=== PATIENT | female | born 1990 | race American Indian/Alaskan Native ===

== ENCOUNTER 2018-12-02 12:33 | Inpatient (IN) | payer MEDICAID ==
[2018-12-02] MEDS ORDERED: BRETHINE SUB-Q PRN (14:48)
[2018-12-02] MEDS ORDERED: SUBLIMAZE IV PRN (14:48)
[2018-12-02] MEDS ORDERED: ZOFRAN IV PRN (14:48)
[2018-12-02] MEDS ORDERED: XYLOCAINE 2% INFILTRATI ONE (14:48)
[2018-12-02] MEDS ORDERED: PITOCin/NS 20 UNIT/1000ML DRIP 20 UNITS/1,000 ML BAG IV SCH (15:00)
[2018-12-02] MEDS ORDERED: PITOCin/NS 30 UNIT/500ML 30 UNITS/500 ML BAG IV SCH (15:00)
--- NOTE | 2018-12-02 15:16 | History and Physical Report ---
History of Present Illness Date of examination: 12/02/18 (Early labor BPP 6/8 TEA 9) History of present illness: EDC Confirmation: 12/06/2018 Gestational Age: 12 1/7 weeks Past History : 3 Term Births: 2 Living Children: 2 Para: 2 Mult. Births: 0 Prev : 0 Prev. attempt? 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 Infection History Hx of STD: chlamydia HIV Risk Eval: low risk Hepatitis B Risk Eval: low risk Personal hx. of genital herpes: yes Partner hx. of genital herpes: no Rash, Viral, or Febrile illness since last LMP? no Varicella/Chicken Pox Status: Immunized TB Risk: no Genetic History Congenital Heart Defect: Mom: no Dad: no Guerda Disease: Mom: no Dad: no Thalassemia Mom: no Dad: no Neural Tube Defect Mom: no Dad: no Down's Syndrome Mom: no Dad: no Smauel-Sachs Mom: no Dad: no Sickle Cell Disease/Trait Mom: no Dad: no Hemophilia Mom: no Dad: no Muscular Dystrophy Mom: no Dad: no Cystic Fibrosis Mom: no Dad: no [place] Chorea Mom: no Dad: no Mental Retardation Mom: no Dad: no Fragile X Mom: no Dad: no Other Genetic/Chromosomal Disorder Mom: no Dad: no Child w/other defect Mom: no Dad: no Enviromental Exposures Enviromental Exposures Reviewed Xray Exposure: no Medication, drug, or alcohol use since LMP: no Chemical/Other Exposure: no Exposure to Cat Liter: no Hx of Parvovirus (Fifth Disease): no Occupational Exposure to Children: none Active Medications (reviewed today): VALACYCLOVIR HCL 500 MG ORAL TABLET (VALACYCLOVIR HCL) 1 po qd Current Allergies (reviewed today): No known allergies Past History - Obstetrical History Expected Date of Delivery: 12/06/18 Actual Gestation: 39 Week(s) 3 Day(s) : 3 Para: 2 Hx # Term Pregnancies: 2 Number of Pregnancies: 0 Spontaneous Abortions: 0 Induced : 0 Number of Living Children: 2 Medications and Allergies Allergies Allergy/AdvReac Type Severity Reaction Status Date / Time No Known Allergies Allergy Verified 12/02/18 12:42 Home Medications Medication Instructions Recorded Confirmed Last Taken Type No Known Home Medications [No 12/02/18 12/02/18 Unknown History Reported Home Medications] Active Meds: Active Medications Ephedrine Sulfate (Ephedrine Sulfate) 10 mg IV Q2M PRN PRN Reason: Hypotension Fentanyl (Sublimaze) 100 mcg IV Q2H PRN PRN Reason: Labor Pain Oxytocin/Sodium Chloride (Pitocin/Ns 20 Unit/1000ml Drip) 20 units in 1,000 mls @ 125 mls/hr IV DIRECT CELENA Oxytocin/Sodium Chloride (Pitocin/Ns 30 Unit/500ml) 30 units in 500 mls @ 4 mls/hr IV Q30MIN CELENA; Protocol Lactated Ringer's (Lactated Ringers) 1,000 mls @ 125 mls/hr IV DIRECT CELENA Mineral Oil (Mineral Oil) 30 ml PO QHS PRN PRN Reason: Constipation Ondansetron HCl (Zofran) 4 mg IV Q8H PRN PRN Reason: Nausea And Vomiting Terbutaline Sulfate (Brethine) 0.25 mg SUB-Q ONCE PRN PRN Reason: Hyperstimulation/Hypertonicity - Vital Signs Vital signs: Vital Signs Pulse BP 100 H 101/59 12/02/18 12:51 12/02/18 12:51 Temp Pulse Resp BP Pulse Ox 98.4 F 94 H 18 105/60 12/02/18 13:15 12/02/18 13:54 12/02/18 13:15 12/02/18 13:54 - Physical Exam Breasts: Positive: deferred Cardiovascular: Regular rate, Normal S1, Normal S2 Lungs: Positive: Normal air movement Abdomen: Positive: normal appearance, soft, normal bowel sounds. Negative: distention, tenderness Genitourinary (Female): Positive: normal external genitalia Vulva: both: normal Vagina: Positive: normal moisture. Negative: discharge Cervix: Negative: lesion, discharge Uterus: Positive: normal size, normal contour Adnexa: both: normal Anus/Rectum: Positive: normal perianal skin, heme negative. Negative: rectal mass, hemorrhoids Extremities: Positive: normal Deep Tendon Reflex Grade: Normal +2 - Obstetrical FHR: category 1 Uterine Contraction Monitor Mode: External Cervical Dilatation: 1 Cervical Effacement Percentage: 10 station: -2 Uterine Contraction Pattern: Irregular Uterine Tone Measurement Phase: Resting Uterine Contraction Intensity: Mild Results All other labs normal. GBS negative HBsAg Screen Negative Negative *1 RPR Non Reactive Non Reactive *2 Rubella Antibodies, IgG 1.25 index Immune >0.99 *3 Non-immune <0.90 Equivocal 0.90 - 0.99 Immune >0.99 ABO Grouping B *4 Rh Factor Positive *5 Please note: Prior records for this patient's ABO / Rh type are not available for additional verification. Antibody Screen Negative Negative *6 WBC [H] 12.4 x10E3/uL 3.4-10.8 *7 RBC 4.31 x10E6/uL 3.77-5.28 *8 Hemoglobin 11.7 g/dL 11.1-15.9 *9 Hematocrit 36.6 % 34.0-46.6 *10 MCV 85 fL 79-97 *11 MCH 27.1 pg 26.6-33.0 *12 MCHC 32.0 g/dL 31.5-35.7 *13 RDW 14.6 % 12.3-15.4 *14 Platelets 347 x10E3/uL 150-379 *15 Neutrophils 75 % Not Estab. *16 Lymphs 18 % Not Estab. *17 Monocytes 6 % Not Estab. *18 Eos 1 % Not Estab. *19 Basos 0 % Not Estab. *20 ! Immature Cells <No Reported Value> *21 Neutrophils (Absolute) [H] 9.3 x10E3/uL 1.4-7.0 *22 Lymphs (Absolute) 2.3 x10E3/uL 0.7-3.1 *23 Monocytes(Absolute) 0.8 x10E3/uL 0.1-0.9 *24 Eos (Absolute) 0.1 x10E3/uL 0.0-0.4 *25 Baso (Absolute) 0.0 x10E3/uL 0.0-0.2 *26 ! Immature Granulocytes 0 % Not Estab. *27 ! Immature Grans (Abs) 0.0 x10E3/uL 0.0-0.1 *28 ! NRBC <No Reported Value> *29 Hematology Comments: <No Reported Value> *30 Tests: (2) AFP Tetra ([id number]) ! Results Report *31 ! Test Results: *Screen Negative* *32 ! Tests: (3) Ct, Ng, Trich vag by ILA ([id number]) ! Chlamydia by ILA Negative Negative *55 ! Gonococcus by ILA Negative Negative *56 ! Trich vag by ILA Negative Negative *57 Tests: (4) HB Solu + Rflx [facility] ([id number]) Hemoglobin (Hgb) Solubility Negative Negative *58 Tests: (5) Panel 022288 ([id number]) HIV Screen 4th Generation wRfx Non Reactive Non Reactive *59 Tests: (6) HCV Ab w/Rflx to Verification ([id number]) ! HCV Ab <0.1 s/co ratio 0.0-0.9 *60 Tests: (7) Comment: ([id number]) ! Comment: SPRCS *61 Non reactive HCV antibody screen is consistent with no HCV infection, unless recent infection is suspected or other evidence exists to indicate HCV infection. Tests: (8) Urine Culture, Routine ([id number]) Urine Culture, Routine Final report *62 Tests: (9) Result ([id number]) ! Result 1 No growth Assessment and Plan pt presents to triage with c/o ctx and a decrease in movement NST reactive BPP /8 with 2 off for movement. Will move forward with IOL @ 39 weeks. Pt had been scheduled for 12/06/18. Consulted with she concurs with IOL today. She recommends CMP due to Lupus to assess kidney function. given report. GBS negative. All orders in EMR
[2018-12-02 15:56] LABS: Hematocrit 26.5 % (30.3-42.9); Hemoglobin 8.2 gm/dl (10.1-14.3); Mean Corpuscular HGB Conc 31 % (30-34); Platelet Count 287 K/mm3 (140-440); Red Blood Count 3.81 M/mm3 (3.65-5.03); Red Cell Distribution Width 18.4 % (13.2-15.2)
[2018-12-02 16:23] LABS: Mean Corpuscular Volume 69 fl (79-97)
[2018-12-02 16:31] LABS: Alanine Aminotransferase 10 units/L (7-56); Albumin 3.7 g/dL (3.9-5); BUN/Creatinine Ratio 23; Blood Urea Nitrogen 9 mg/dL (7-17); Calcium 9.1 mg/dL (8.4-10.2); Hemolysis Index 1
[2018-12-02] MEDS: LACTATED RINGERS 1,000 ML IV SCH (16:47)
[2018-12-02] MEDS ORDERED: CERVIDIL VG ONE (17:00)
--- NOTE | 2018-12-02 17:29 | Ultrasound Report ---
Limited OB ultrasound Biophysical profile INDICATION: Nonreactive NST. Evaluate TEA. Clinical Gestational Age (GA): 39 weeks, 3 days. TECHNIQUE: Transabdominal. COMPARISON: None available. FINDINGS: A single live intrauterine is noted in cephalic position with a normal amniotic fluid index of 9.4 cm. The biophysical profile is 6/8. movement was abnormal during this exam. breathing movemen ts and posture/tone were normal. IMPRESSION: 1. Single live intrauterine with a normal amniotic fluid index. 2. Abnormal biophysical profile of 6/8. Signer Name: Solomon Rivas MD Signed: 12/02/2018 5:24 PM Workstation Name: [id number]
--- NOTE | 2018-12-02 19:05 | Ultrasound Report ---
Limited OB ultrasound with biophysical profile INDICATION: Nonreactive NST. Evaluate TEA. COMPARISON: None available. FINDINGS: The biophysical profile is 2/6. Normal movements are not seen during the exam. The amniotic flu id volume appears normal qualitatively. IMPRESSION: 1. Biophysical profile of 09/16. 2. Qualitatively normal amniotic fluid volume. Signer Name: Solomon Rivas MD Signed: 12/02/2018 7:01 PM Workstation Name: [id number]
[2018-12-02] MEDS ORDERED: MINERAL OIL PO PRN (22:00)
--- NOTE | 2018-12-02 22:08 | Progress Note ---
Assessment and Plan Pt declines any medication at this time. Re-eval as needed. Subjective - Subjective Date of service: 12/02/18 (ctx regular) Principal diagnosis: IUP @ 39w3d Lupus Interval history: EDC Confirmation: 12/06/2018 Gestational Age: 12 1/7 weeks Past History : 3 Term Births: 2 Living Children: 2 Para: 2 Mult. Births: 0 Prev : 0 Prev. attempt? 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 Infection History Hx of STD: chlamydia HIV Risk Eval: low risk Hepatitis B Risk Eval: low risk Personal hx. of genital herpes: yes Partner hx. of genital herpes: no Rash, Viral, or Febrile illness since last LMP? no Varicella/Chicken Pox Status: Immunized TB Risk: no Genetic History Congenital Heart Defect: Mom: no Dad: no Guerda Disease: Mom: no Dad: no Thalassemia Mom: no Dad: no Neural Tube Defect Mom: no Dad: no Down's Syndrome Mom: no Dad: no Samuel-Sachs Mom: no Dad: no Sickle Cell Disease/Trait Mom: no Dad: no Hemophilia Mom: no Dad: no Muscular Dystrophy Mom: no Dad: no Cystic Fibrosis Mom: no Dad: no [place] Chorea Mom: no Dad: no Mental Retardation Mom: no Dad: no Fragile X Mom: no Dad: no Other Genetic/Chromosomal Disorder Mom: no Dad: no Child w/other defect Mom: no Dad: no Enviromental Exposures Enviromental Exposures Reviewed Xray Exposure: no Medication, drug, or alcohol use since LMP: no Chemical/Other Exposure: no Exposure to Cat Liter: no Hx of Parvovirus (Fifth Disease): no Occupational Exposure to Children: none Active Medications (reviewed today): VALACYCLOVIR HCL 500 MG ORAL TABLET (VALACYCLOVIR HCL) 1 po qd Current Allergies (reviewed today): No known allergies Patient reports: movement normal, contractions Objective - Vital Signs Vital Signs: Vital Signs - 12hr 12/02/18 12/02/18 12/02/18 12:51 13:15 13:54 Temperature 98.4 F Pulse Rate 100 H 100 H 94 H Respiratory 18 Rate Blood Pressure 101/59 105/60 Blood Pressure [Right] O2 Sat by Pulse Oximetry 12/02/18 12/02/18 12/02/18 15:35 18:02 18:10 Temperature Pulse Rate 87 96 H 93 H Respiratory Rate Blood Pressure 118/64 102/59 109/66 Blood Pressure [Right] O2 Sat by Pulse Oximetry 12/02/18 12/02/18 12/02/18 19:36 19:38 21:07 Temperature 98.6 F Pulse Rate 100 H 100 H 90 Respiratory 20 Rate Blood Pressure 119/64 Blood Pressure 119/64 [Right] O2 Sat by Pulse 100 Oximetry 12/02/18 12/02/18 12/02/18 21:12 21:17 21:22 Temperature Pulse Rate 88 88 87 Respiratory Rate Blood Pressure Blood Pressure [Right] O2 Sat by Pulse 100 99 99 Oximetry 12/02/18 12/02/18 12/02/18 21:27 21:32 21:37 Temperature Pulse Rate 92 H 84 89 Respiratory Rate Blood Pressure Blood Pressure [Right] O2 Sat by Pulse 99 98 98 Oximetry 12/02/18 21:42 Temperature Pulse Rate 86 Respiratory Rate Blood Pressure Blood Pressure [Right] O2 Sat by Pulse 98 Oximetry - Exam Breasts: deferred Cardiovascular: Regular rate Abdomen: Present: normal appearance, soft. Absent: distention, tenderness Uterus: Present: normal FHR: auscultation normal, category 1 Uterine Contraction Monitor Mode: External Cervical Dilatation: 1 (cervidil in place) Cervical Effacement Percentage: 80 station: -1 Uterine Contraction Pattern: Regular Uterine Tone Measurement Phase: Resting Uterine Contraction Intensity: Moderate Extremities: normal Deep Tendon Reflex Grade: Normal +2 - Labs Labs: Abnormal Labs 12/02/18 12/02/18 15:09 15:09 WBC 11.8 H Hgb 8.2 L Hct 26.5 L MCV 69 L MCH 22 L RDW 18.4 H Sodium 136 L Creatinine 0.4 L Alkaline Phosphatase 146 H Albumin 3.7 L Laboratory Results - last 24 hr 12/02/18 12/02/18 12/02/18 14:52 15:09 15:09 WBC 11.8 H RBC 3.81 Hgb 8.2 L Hct 26.5 L MCV 69 L MCH 22 L MCHC 31 RDW 18.4 H Plt Count 287 Sodium 136 L Potassium 3.8 Chloride 100.5 Carbon Dioxide 23 Anion Gap 16 BUN 9 Creatinine 0.4 L Estimated GFR > 60 BUN/Creatinine Ratio 23 Glucose 81 Calcium 9.1 Total Bilirubin 0.60 AST 21 ALT 10 Alkaline Phosphatase 146 H Total Protein 6.8 Albumin 3.7 L Albumin/Globulin Ratio 1.2 Blood Type B POSITIVE Antibody Screen Negative
[2018-12-03] MEDS: LACTATED RINGERS 1,000 ML IV SCH ×2 (00:28→03:06)
[2018-12-03] MEDS ORDERED: NARCAN 2 MG/2 ML IV PRN (01:46)
--- NOTE | 2018-12-03 01:46 | Progress Note ---
Assessment and Plan Comfortable with epidural SROM clear fluid SVE 4,50,-1 IUPC placed Pitocin started. Re-eval as needed Subjective - Subjective Date of service: 12/03/18 (comfortable with epidural) Principal diagnosis: IUP @ 39w3d Lupus Interval history: EDC Confirmation: 12/06/2018 Gestational Age: 12 1/7 weeks Past History : 3 Term Births: 2 Living Children: 2 Para: 2 Mult. Births: 0 Prev : 0 Prev. attempt? 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 Infection History Hx of STD: chlamydia HIV Risk Eval: low risk Hepatitis B Risk Eval: low risk Personal hx. of genital herpes: yes Partner hx. of genital herpes: no Rash, Viral, or Febrile illness since last LMP? no Varicella/Chicken Pox Status: Immunized TB Risk: no Genetic History Congenital Heart Defect: Mom: no Dad: no Guerda Disease: Mom: no Dad: no Thalassemia Mom: no Dad: no Neural Tube Defect Mom: no Dad: no Down's Syndrome Mom: no Dad: no Samuel-Sachs Mom: no Dad: no Sickle Cell Disease/Trait Mom: no Dad: no Hemophilia Mom: no Dad: no Muscular Dystrophy Mom: no Dad: no Cystic Fibrosis Mom: no Dad: no [place] Chorea Mom: no Dad: no Mental Retardation Mom: no Dad: no Fragile X Mom: no Dad: no Other Genetic/Chromosomal Disorder Mom: no Dad: no Child w/other defect Mom: no Dad: no Enviromental Exposures Enviromental Exposures Reviewed Xray Exposure: no Medication, drug, or alcohol use since LMP: no Chemical/Other Exposure: no Exposure to Cat Liter: no Hx of Parvovirus (Fifth Disease): no Occupational Exposure to Children: none Active Medications (reviewed today): VALACYCLOVIR HCL 500 MG ORAL TABLET (VALACYCLOVIR HCL) 1 po qd Current Allergies (reviewed today): No known allergies Patient reports: movement normal, contractions Objective - Vital Signs Vital Signs: Vital Signs - 12hr 12/02/18 12/02/18 12/02/18 13:54 15:35 18:02 Temperature Pulse Rate 94 H 87 96 H Respiratory Rate Blood Pressure 105/60 118/64 102/59 Blood Pressure [Right] O2 Sat by Pulse Oximetry 12/02/18 12/02/18 12/02/18 18:10 19:36 19:38 Temperature 98.6 F Pulse Rate 93 H 100 H 100 H Respiratory 20 Rate Blood Pressure 109/66 119/64 Blood Pressure 119/64 [Right] O2 Sat by Pulse Oximetry 12/02/18 12/02/18 12/02/18 21:07 21:12 21:17 Temperature Pulse Rate 90 88 88 Respiratory Rate Blood Pressure Blood Pressure [Right] O2 Sat by Pulse 100 100 99 Oximetry 12/02/18 12/02/18 12/02/18 21:22 21:27 21:32 Temperature Pulse Rate 87 92 H 84 Respiratory Rate Blood Pressure Blood Pressure [Right] O2 Sat by Pulse 99 99 98 Oximetry 12/02/18 12/02/18 12/02/18 21:37 21:42 21:52 Temperature Pulse Rate 89 86 88 Respiratory Rate Blood Pressure Blood Pressure [Right] O2 Sat by Pulse 98 98 100 Oximetry 12/02/18 12/02/18 12/02/18 21:57 22:02 22:07 Temperature Pulse Rate 95 H 109 H 88 Respiratory Rate Blood Pressure Blood Pressure [Right] O2 Sat by Pulse 99 98 98 Oximetry 12/02/18 12/02/18 12/02/18 22:12 22:17 22:22 Temperature Pulse Rate 87 84 92 H Respiratory Rate Blood Pressure Blood Pressure [Right] O2 Sat by Pulse 98 98 98 Oximetry 12/02/18 12/02/18 12/02/18 22:27 22:32 22:37 Temperature Pulse Rate 98 H 85 90 Respiratory Rate Blood Pressure Blood Pressure [Right] O2 Sat by Pulse 99 98 98 Oximetry 12/02/18 12/02/18 12/02/18 22:42 22:47 22:52 Temperature Pulse Rate 86 111 H 85 Respiratory Rate Blood Pressure Blood Pressure [Right] O2 Sat by Pulse 98 97 98 Oximetry 12/02/18 12/02/18 12/02/18 22:57 23:02 23:07 Temperature Pulse Rate 90 94 H 91 H Respiratory Rate Blood Pressure Blood Pressure [Right] O2 Sat by Pulse 97 97 97 Oximetry 12/02/18 12/02/18 12/02/18 23:12 23:17 23:22 Temperature Pulse Rate 85 98 H 89 Respiratory Rate Blood Pressure Blood Pressure [Right] O2 Sat by Pulse 98 97 97 Oximetry 12/02/18 12/02/18 12/02/18 23:27 23:32 23:37 Temperature Pulse Rate 89 96 H 90 Respiratory Rate Blood Pressure Blood Pressure [Right] O2 Sat by Pulse 98 99 97 Oximetry 12/02/18 12/02/18 12/02/18 23:42 23:47 23:52 Temperature Pulse Rate 88 98 H 83 Respiratory Rate Blood Pressure Blood Pressure [Right] O2 Sat by Pulse 97 98 98 Oximetry 12/02/18 12/03/18 12/03/18 23:57 00:02 00:07 Temperature Pulse Rate 92 H 91 H 88 Respiratory Rate Blood Pressure Blood Pressure [Right] O2 Sat by Pulse 98 98 99 Oximetry 12/03/18 12/03/18 12/03/18 00:12 00:17 00:22 Temperature Pulse Rate 84 88 92 H Respiratory Rate Blood Pressure Blood Pressure [Right] O2 Sat by Pulse 98 99 100 Oximetry 12/03/18 12/03/18 12/03/18 00:27 00:32 00:37 Temperature Pulse Rate 89 85 99 H Respiratory Rate Blood Pressure Blood Pressure [Right] O2 Sat by Pulse 99 99 99 Oximetry 12/03/18 12/03/18 12/03/18 00:42 00:47 00:52 Temperature Pulse Rate 98 H 88 89 Respiratory Rate Blood Pressure Blood Pressure [Right] O2 Sat by Pulse 100 100 100 Oximetry 12/03/18 12/03/18 12/03/18 00:57 01:02 01:06 Temperature Pulse Rate 108 H 91 H 102 H Respiratory Rate Blood Pressure 122/75 Blood Pressure [Right] O2 Sat by Pulse 100 100 Oximetry 12/03/18 12/03/18 12/03/18 01:07 01:08 01:10 Temperature Pulse Rate 103 H 102 H 105 H Respiratory Rate Blood Pressure 118/75 119/80 Blood Pressure [Right] O2 Sat by Pulse 100 Oximetry 12/03/18 12/03/18 12/03/18 01:12 01:14 01:16 Temperature Pulse Rate 100 H 107 H 99 H Respiratory Rate Blood Pressure 124/78 143/71 126/71 Blood Pressure [Right] O2 Sat by Pulse 100 Oximetry 12/03/18 12/03/18 12/03/18 01:17 01:18 01:20 Temperature Pulse Rate 96 H 104 H 117 H Respiratory Rate Blood Pressure 124/66 129/66 Blood Pressure [Right] O2 Sat by Pulse 100 Oximetry 12/03/18 12/03/18 12/03/18 01:22 01:24 01:26 Temperature Pulse Rate 124 H 117 H 122 H Respiratory Rate Blood Pressure 133/72 133/73 134/74 Blood Pressure [Right] O2 Sat by Pulse 100 Oximetry 12/03/18 12/03/18 12/03/18 01:27 01:28 01:30 Temperature Pulse Rate 116 H 117 H 116 H Respiratory Rate Blood Pressure 128/72 128/64 Blood Pressure [Right] O2 Sat by Pulse 100 Oximetry 12/03/18 12/03/18 12/03/18 01:32 01:34 01:36 Temperature Pulse Rate 98 H 105 H 89 Respiratory Rate Blood Pressure 123/58 123/66 124/63 Blood Pressure [Right] O2 Sat by Pulse 100 Oximetry 12/03/18 12/03/18 12/03/18 01:37 01:38 01:40 Temperature Pulse Rate 98 H 98 H 97 H Respiratory Rate Blood Pressure 124/64 121/58 Blood Pressure [Right] O2 Sat by Pulse 99 Oximetry 12/03/18 01:42 Temperature Pulse Rate 122 H Respiratory Rate Blood Pressure 95/51 Blood Pressure [Right] O2 Sat by Pulse 100 Oximetry - Exam Breasts: deferred Cardiovascular: Regular rate Lungs: Normal air movement Abdomen: Present: normal appearance, soft. Absent: distention, tenderness Uterus: Present: normal FHR: auscultation normal, category 1 Uterine Contraction Monitor Mode: Internal Cervical Dilatation: 4 (IUPC) Cervical Effacement Percentage: 50 (SROM clear) station: -1 Uterine Contraction Pattern: Regular Uterine Tone Measurement Phase: Resting Uterine Contraction Intensity: Moderate Extremities: normal Deep Tendon Reflex Grade: Normal +2 - Labs Labs: Abnormal Labs 12/02/18 12/02/18 15:09 15:09 WBC 11.8 H Hgb 8.2 L Hct 26.5 L MCV 69 L MCH 22 L RDW 18.4 H Sodium 136 L Creatinine 0.4 L Alkaline Phosphatase 146 H Albumin 3.7 L Laboratory Results - last 24 hr 12/02/18 12/02/18 12/02/18 14:52 15:09 15:09 WBC 11.8 H RBC 3.81 Hgb 8.2 L Hct 26.5 L MCV 69 L MCH 22 L MCHC 31 RDW 18.4 H Plt Count 287 Sodium 136 L Potassium 3.8 Chloride 100.5 Carbon Dioxide 23 Anion Gap 16 BUN 9 Creatinine 0.4 L Estimated GFR > 60 BUN/Creatinine Ratio 23 Glucose 81 Calcium 9.1 Total Bilirubin 0.60 AST 21 ALT 10 Alkaline Phosphatase 146 H Total Protein 6.8 Albumin 3.7 L Albumin/Globulin Ratio 1.2 Blood Type B POSITIVE Antibody Screen Negative
[2018-12-03] MEDS ORDERED: fentaNYL-BUPIV 2 MCG/ML-0.125% 200 MCG/100 ML BAG EPIDURAL SCH (02:00)
--- NOTE | 2018-12-03 02:00 | Anesthesia Consultation ---
Anesthesia Consult and Med Hx Date of service: 12/03/18 - Airway Anesthetic Teeth Evaluation: Good ROM Head & Neck: Adequate Mental/Hyoid Distance: Adequate Mallampati Class: Class II Intubation Access Assessment: Probably Good - Pulmonary Exam CTA: Yes - Cardiac Exam Cardiac Exam: RRR - Pre-Operative Health Status ASA Pre-Surgery Classification: ASA2 Proposed Anesthetic Plan: Epidural - Pulmonary Hx Smoking: No Hx Asthma: No Hx Respiratory Symptoms: No SOB: No COPD: No Home Oxygen Therapy: No Hx Pneumonia: No Hx Sleep Apnea: No - Cardiovascular System Hx Hypertension: No Hx Coronary Artery Disease: No Hx Heart Attack/AMI: No Hx Angina: No Hx Percutaneous Transluminal Coronary Angioplasty (PTCA): No Hx Cardia Arrhythmia: No Hx Pacemaker: No Hx Internal Defibrillator: No Hx Valvular Heart Disease: No Hx Heart Murmur: No Hx Peripheral Vascular Disease: No - Central Nervous System Hx Neuromuscular Disorder: No Hx Seizures: No CVA: No Hx Back Pain: No Hx Psychiatric Problems: No - Gastrointestinal Hx Ulcer: No Hx Gastroesophageal Reflux Disease: No - Endocrine Hx Renal Disease: No Hx End Stage Renal Disease: No Hx Cirrhosis: No Hx Liver Disease: No Hx Insulin Dependent Diabetes: No Hx Non-Insulin Dependent Diabetes: No Hx Thyroid Disease: No Hx Hypothyroidism: No Hx Hyperthyroidism: No - Hematic Hx Anemia: No Hx Sickle Cell Disease: No - Other Systems Hx Alcohol Use: No Hx Substance Use: No Hx Cancer: No Hx Obesity: No
[2018-12-03] MEDS ORDERED: METHERGINE IM ONE ×2 (06:19→06:28)
[2018-12-03] MEDS ORDERED: TUCKS PAD TP PRN (06:34)
[2018-12-03] MEDS ORDERED: MILK OF MAGNESIA PO PRN (06:34)
[2018-12-03] MEDS ORDERED: BENADRYL PO PRN (06:34)
[2018-12-03] MEDS ORDERED: PHENERGAN PO PRN (06:34)
[2018-12-03] MEDS ORDERED: PERCOCET 5/325 PO PRN (06:34)
[2018-12-03] MEDS ORDERED: LANSINOH TP PRN (06:34)
[2018-12-03] MEDS ORDERED: DULCOLAX PR PRN (06:34)
--- NOTE | 2018-12-03 06:54 | Procedure Note ---
OB Delivery Note - Delivery Date of Delivery: 12/03/18 Building Custodial Supervisor: SEAN BARRIENTOS Estimated blood loss: 500cc - Vaginal Delivery presentation: vertex Delivery position: OA Intrapartum events: other(please specify) (herpes took Valtrex prophylactically; poss lesion noted on right labia after delivery) Delivery induction: cervidil Delivery augmentation: pitocin Delivery monitor: internal FHT, internal uterine Route of delivery: Delivery placenta: spontaneous Delivery cord: 3 umbilical vessels Episiotomy: none Delivery laceration: none Anesthesia: epidural Delivery comments: Called urgently to room for delivery live born female over intact perineum Baby to mom's abdomen skin to skin Placenta and membrane delivered complete and intact, 3 vessel cord. Pit IVFs Uterus boggy several mod clots expressed Uterine sweep done Methergin IM given EBL 500 8/9 Wgt 7-1. Mom and baby remain LDR stable. Bartholins cyst noted @ time of delivery I&D after delivery Culture done Will tx with Rocephin and Azythromycin. Possible HSV lesion noted on right labia after delivery This was not appreciated prior to onset labor despite thorough evaluation. Will continue Valtrex BID Placenta to pathology. - A at 1 minute: 8 at 5 minutes: 9 Infant Gender: Female (wgt 7-1)
[2018-12-03] MEDS ORDERED: SODIUM CHLORIDE FLUSH SYRINGE 10 ML IV NR (07:00)
[2018-12-03] MEDS: IBUPROFEN PO SCH ×3 (07:42→19:57)
[2018-12-03] MEDS: ROCEPHIN/NS 1 GM/50 ML 1 GM/50 ML BAG IV SCH (07:45)
[2018-12-03] MEDS: ZITHROMAX PO SCH (11:21)
[2018-12-03] MEDS: VALTREX PO SCH ×2 (11:22→22:00)
[2018-12-03 19:30] LABS: Hematocrit 24.6 % (30.3-42.9); Hemoglobin 7.7 gm/dl (10.1-14.3)
[2018-12-04] MEDS: TYLENOL PO PRN ×2 (01:00→12:04)
--- NOTE | 2018-12-04 03:40 | Discharge Summary ---
Providers - Providers Date of Admission: 12/02/18 15:46 Date of discharge: 12/04/18 (pt requests d/c today if possible) Attending physician: LEROY MICHAELS Primary care physician: OPERATIONS SYSTEMS SPECIALIST Hospitalization Reason for admission: active labor Delivery: Episiotomy: none Laceration: none Incision: normal, other (I&D Bartholins No redness no swelling; blister on right labia appears to be healing) Other procedures: none complications: none Discharge diagnosis: IUP at term delivered baby: female Hospital course: uncomplicated vaginal delivery I&D Bartholins right side Right labia poss HSV ulcer Pt resting in bed NB with her VSS FF below umb Lochia small Perineum intact. H&H 11/01 drop r/t blood loss from delivery Pt is asymptomatic. Doing well s/p vag delivery P: d/c today with instructions Pt aware baby will have testing/cultures done this AM. Pt will also receive her second dose of ABX prior to d/c All questions addressed RTO 4 weeks PP care Condition at discharge: Good Disposition: DC-01 TO HOME OR SELFCARE - Discharge Diagnoses (1) Spontaneous vaginal delivery Status: Acute Comment: RTO 4 weeks PP care (2) Anemia Status: Chronic Qualifiers: Anemia type: unspecified type Qualified Code(s): D64.9 - Anemia, unspecified Comment: RX provided for bid iron Plan - Provider Discharge Summary Activity: routine, no sex for 6 weeks, no heavy lifting 4 weeks, no strenuous exercise Diet: routine Instructions: routine Additional instructions: [] Smoking cessation referral if applicable(refer to patient education folder for contact #) [] Refer to [facility] Booklet Call your doctor immediately for: * Fever > 100.5 * Heavy vaginal bleeding ( >1 pad per hour) * Severe persistent headache * Shortness of breath * Reddened, hot, painful area to leg or breast * Drainage or odor from incision. * Keep incision clean and dry at all times and follow doctor's instructions regarding bathing/showering - Follow up plan Follow up: PRIMARY CARE, [Primary Care Provider] - 7 Days SEAN BARRIENTOS CNM [Advanced Practice Nurse] - 01/02/19 (Congratulations! Please call [phone] to schedule your visit in 4 weeks. Take medications as prescribed. Call with any concerns.) Forms: [facility] Discharge Summary
[2018-12-04] MEDS ORDERED: BOOSTRIX IM ONE (06:00)
[2018-12-04] MEDS: IBUPROFEN PO SCH ×3 (07:24→12:05)
[2018-12-04] MEDS: ROCEPHIN/NS 1 GM/50 ML 1 GM/50 ML BAG IV SCH (11:39)
[2018-12-04] MEDS: VALTREX PO SCH (11:45)
[2018-12-04] MEDS: ZITHROMAX PO SCH (11:45)
--- NOTE | 2018-12-04 14:03 | Event Note ---
Date: 12/04/18 Called to room by RN to speak to pt and her mother who voice concern for results/pending cultures sent from cyst/possible herpes lesion on pt buttock at time of delivery. According to RN, culture is not in process as it was not labeled correctly prior to being sent to lab. Explained to patient and mother why infant was remaining admitted pending work up/cultures on baby. Offered to assess and/or culture suspicious area for patient, she ignores request and gets into shower. Notified patients mother that I would be happy to come back when she is finished showering if patient would like, she states she will call me if that is what the patient desires. Pt states she still desires to be discharged today, Pt will be "rooming-in" to be able to stay with infant until discharge according to RN.
[2018-12-04 17:35] VITALS: BP 126/76
== END 2018-12-04 18:14 | disposition home or self-care (01) | DRG 774 ==
LOC: TRG 12:33 → LD 15:46 → OB 12-03 09:05
PROVIDERS: ADMIT Obstetrics & Gynecology; ATTEND Obstetrics & Gynecology
PROC: 10E0XZZ Delivery of Products of Conception, External Approach (ICD-10-PCS; principal; 2018-12-03)
PROC: 3E0P7VZ Introduction of Hormone into Female Reproductive, Via Natural or Artificial Opening (ICD-10-PCS; 2018-12-03)
PROC: 3E0R3BZ Introduction of Anesthetic Agent into Spinal Canal, Percutaneous Approach (ICD-10-PCS; 2018-12-03)
PROC: 0U9LXZZ Drainage of Vestibular Gland, External Approach (ICD-10-PCS; 2018-12-03)
PROC: 00HU33Z Insertion of Infusion Device into Spinal Canal, Percutaneous Approach (ICD-10-PCS; 2018-12-03)
PROC: 10H07YZ Insertion of Other Device into Products of Conception, Via Natural or Artificial Opening (ICD-10-PCS; 2018-12-03)
PROC: 3E0234Z Introduction of Serum, Toxoid and Vaccine into Muscle, Percutaneous Approach (ICD-10-PCS; 2018-12-04)
DX: O75.89 Other specified complications of labor and delivery (principal); O98.52 Other viral diseases complicating childbirth; O99.02 Anemia complicating childbirth; D64.9 Anemia, unspecified; N75.0 Cyst of Bartholin's gland; B00.9 Herpesviral infection, unspecified; Z37.0 Single live birth; Z3A.39 39 weeks gestation of pregnancy; Z23 Encounter for immunization
CPT/HCPCS: 36415; 59025; 59200; 76815; 76819; 80053; 85014; 85018; 85027; 86592; 86850; 86900; 86901; 88307; G0378; A6250; J0696; J2210; J2590; J7120

== ENCOUNTER 2019-11-28 23:11 | Emergency (ER) | payer MEDICAID ==
[2019-11-29 01:04] LABS: Basophils % (Auto) 0.5 % (0.0-1.8); Eosinophils % (Auto) 0.5 % (0.0-4.3); Hematocrit 29.7 % (30.3-42.9); Hemoglobin 9.3 gm/dl (10.1-14.3); Lymphocytes # (Auto) 1.6 K/mm3 (1.2-5.4); Lymphocytes % (Auto) 21.3 % (13.4-35.0); Mean Corpuscular HGB Conc 31 % (30-34); Mean Corpuscular Volume 73 fl (79-97); Monocytes # (Auto) 0.5 K/mm3 (0.0-0.8); Monocytes % (Auto) 7.2 % (0.0-7.3); Platelet Count 373 K/mm3 (140-440); Red Cell Distribution Width 16.3 % (13.2-15.2)
[2019-11-29 01:15] LABS: Blood Urea Nitrogen 14 mg/dL (7-17); Calcium 9.3 mg/dL (8.4-10.2); Hemolysis Index 3
[2019-11-29 01:56] LABS: BUN/Creatinine Ratio 23
== END 2019-11-29 01:25 | disposition left against medical advice (07) ==
LOC: ED 23:11
DX: R41.82 Altered mental status, unspecified (principal); Z53.21 Procedure and treatment not carried out due to patient leaving prior to being seen by health care provider
CPT/HCPCS: 36415; 80048; 85025

== ENCOUNTER 2020-11-28 18:44 | Observation (INO) | payer MEDICAID ==
[2020-11-28] MEDS ORDERED: DOCUSATE SODIUM 100 MG CAP PO PRN (18:59)
[2020-11-28] MEDS ORDERED: ACETAMINOPHEN 325 MG TAB PO PRN (18:59)
[2020-11-28] MEDS ORDERED: ONDANSETRON 4 MG/2 ML INJ IV PRN (18:59)
[2020-11-28] MEDS ORDERED: diphenhydrAMINE 25 MG CAP PO PRN (18:59)
[2020-11-28] MEDS ORDERED: MAGNESIUM HYDROXIDE (MOM) ORAL LIQD UDC PO PRN (18:59)
[2020-11-28] MEDS ORDERED: ALUM-MAG HYDROXIDE-SIMETHICONE 200-200-20MG/5ML ORAL LIQD 30 ML PO PRN (18:59)
[2020-11-28] MEDS ORDERED: LACTATED RINGERS 1,000 ML IV SCH (19:00)
--- NOTE | 2020-11-28 19:04 | History and Physical Report ---
<CHELSEY CARRINGTON - Last Filed: 11/29/20 00:07> History of Present Illness Date of examination: 11/28/20 (Here for a blood transfusion. ) Date of admission: 11/28/20 18:44 Chief complaint: I'm here for my blood transfusion. History of present illness: Pt is a 29 y.o. @ 28.5 wks. presented to labor and delivery d/t severe anemia that was noted in the office. Her H/H is noted to be 6.8/23. Pt was told on multiple occasions that she will need a transfusion but d/t to child and family counselor issues she never was able to show up at the hospital. She has a history of severe anemia and Lupus. She has no other medical history. OBGYN History X3. Denies drug and alcohol use. Past History Past Medical History: hematologic disorders (Anemia), other Past Surgical History: no surgical history Family/Genetic History: none Social history: no significant social history - Obstetrical History Expected Date of Delivery: 02/15/21 Actual Gestation: 28 Week(s) 6 Day(s) : 4 Para: 3 Hx # Term Pregnancies: 3 Number of Pregnancies: 0 Spontaneous Abortions: 0 Induced : 0 Number of Living Children: 3 Medications and Allergies Allergies Allergy/AdvReac Type Severity Reaction Status Date / Time No Known Allergies Allergy Verified 12/02/18 12:42 Home Medications Medication Instructions Recorded Confirmed Last Taken Type Docusate Sodium [Colace] 100 mg PO BID PRN #60 capsule 12/04/18 Unknown Rx Ferrous Sulfate [Feosol 325 MG tab] 325 mg PO BID #60 tablet 12/04/18 Unknown Rx Ibuprofen [Motrin 800 MG tab] 800 mg PO TID PRN #30 tablet 12/04/18 Unknown Rx valACYclovir [Valtrex] 1,000 mg PO BID #60 tab 12/04/18 Unknown Rx Active Meds: Active Medications Acetaminophen (Acetaminophen 325 Mg Tab) 650 mg PO Q4H PRN PRN Reason: Pain MILD(1-3)/Fever >100.5/HARRIS Al Hydrox/Mg Hydrox/Simethicone (Alum-Mag Hydroxide-Simethicone [id number]/5ml Oral Liqd 30 Ml) 30 ml PO Q6H PRN PRN Reason: Indigestion Diphenhydramine HCl (Diphenhydramine 25 Mg Cap) 25 mg PO Q6H PRN PRN Reason: Itching Docusate Sodium (Docusate Sodium 100 Mg Cap) 100 mg PO Q12H PRN PRN Reason: Constipation Lactated Ringer's (Lactated Ringers) 1,000 mls @ 125 mls/hr IV DIRECT CELENA Magnesium Hydroxide (Magnesium Hydroxide (Mom) Oral Liqd Udc) 30 ml PO QHS PRN PRN Reason: Laxative Effect Multivitamins/Iron/Calcium ( [id number] Fumarate-Folic Acid Vit Tab) 1 each PO QDAY CELENA Ondansetron HCl (Ondansetron 4 Mg/2 Ml Inj) 4 mg IV Q6H PRN PRN Reason: Nausea And Vomiting Review of Systems All systems: negative - Vital Signs Vital signs: Pt denies vaginal bleeding, LOF, ctxs, feeling dizzy and lightheaded. - Physical Exam Breasts: Positive: deferred Cardiovascular: Regular rate Lungs: Positive: Normal air movement Abdomen: Positive: normal appearance, soft Uterus: Positive: normal size Extremities: Positive: normal - Obstetrical FHR: category 1 Uterine Contraction Monitor Mode: External Uterine Contraction Pattern: Absent Results Result Diagrams: 11/28/20 19:52 All other labs normal. Labs drawn on admission. Assessment and Plan A: 29 y.o. @ 28.5 wks with anemia in . - Patient Problems (1) Anemia Status: Chronic Qualifiers: Anemia type: iron deficiency Plan to address problem: Admit to labor and delivery. Draw Type and Screen and CBC on admission. Initiate IV. Vital signs per antepartum orders. Continues EFM while receiving blood transfusion. <LEROY MICHAELS - Last Filed: 11/29/20 06:41> History of Present Illness Date of admission: 11/28/20 18:44 Past History Past Medical History: other (Lupus) - Vital Signs Vital signs: Vital Signs Pulse Pulse Ox 108 H 100 11/28/20 19:34 11/28/20 19:34 Temp Pulse Resp BP Pulse Ox 98.5 F 85 16 115/64 100 11/28/20 19:41 11/28/20 23:48 11/28/20 19:41 11/28/20 19:41 11/28/20 23:48 Results Result Diagrams: 11/28/20 19:52 Abnormal lab results 11/28/20 11/28/20 Range/Units 19:52 19:52 Hgb 7.5 L (10.1-14.3) gm/dl Hct 24.4 L (30.3-42.9) % MCV 66 L (79-97) fl MCH 20 L (28-32) pg RDW 21.0 H (13.2-15.2) % [place] % (Auto) 8.5 H (0.0-7.3) % [place] # (Auto) 0.9 H (0.0-0.8) K/mm3 Seg Neutrophils % 73.1 H (40.0-70.0) % Crossmatch See Detail All other labs normal. Assessment and Plan - Patient Problems (1) Lupus Status: Chronic (2) Anemia Status: Chronic Qualifiers: Anemia type: iron deficiency - Addendum Date: 11/29/20 Note: Patient has lupus with anemia patient added for blood transfusion - Discharge Diagnoses (1) Lupus Status: Chronic (2) Anemia Status: Chronic Qualifiers: Anemia type: iron deficiency Comment: RX provided for bid iron
[2020-11-28 19:38] VITALS: BP 115/64
[2020-11-28 20:11] LABS: Basophils % (Auto) 0.2 % (0.0-1.8); Eosinophils # (Auto) 0.1 K/mm3 (0.0-0.4); Eosinophils % (Auto) 0.6 % (0.0-4.3); Hematocrit 24.4 % (30.3-42.9); Hemoglobin 7.5 gm/dl (10.1-14.3); Lymphocytes # (Auto) 1.9 K/mm3 (1.2-5.4); Lymphocytes % (Auto) 17.6 % (13.4-35.0); Mean Corpuscular HGB Conc 31 % (30-34); Monocytes # (Auto) 0.9 K/mm3 (0.0-0.8); Monocytes % (Auto) 8.5 % (0.0-7.3); Platelet Count 291 K/mm3 (140-440); Red Blood Count 3.68 M/mm3 (3.65-5.03)
[2020-11-28 20:13] LABS: Mean Corpuscular Volume 66 fl (79-97)
[2020-11-28] MEDS ORDERED: SODIUM CHLORIDE 0.9% 500 ML 500 ML IV ONE (21:45)
--- NOTE | 2020-11-29 00:13 | Event Note ---
Date: 11/29/20 (Pt wishes to go home.) Was called to room by staff d/t patient wishing to go home. Went to room to speak with patient. She states that it is taking too long for the blood transfusion to be initiated and no longer wishes to receive a blood transfusion. Updated Dr. Christianson regarding patient's wishes. Will discharge home.
--- NOTE | 2020-11-29 00:15 | Discharge Summary ---
Providers - Providers Date of Admission: 11/28/20 18:44 Date of discharge: 11/29/20 (Pt desires discharge home.) Attending physician: LEROY MICHAELS Primary care physician: LEROY MICHAELS Hospitalization Reason for admission: observation Discharge diagnosis: other (Undelivered at 28.6 wks. ) Pertinent studies: Pt no longer wishes to receive a blood transfusion. States that she will keep taking her iron supplement.We discussed that she will need to keep her scheduled appointment in the office and should any concerns arise after discharge, she will call the agricultural education professor provider and come to triage for an evaluation. Hospital course: S: Pt doing well. No longer wishes to receive a blood transfusion. Denies f eeling lightheaded, dizzy, and faint. Also denies vaginal bleeding, LOF, ctxs. States positive movement. O: VSS. H/H 7.5/24.4. monitor strip category 1, appropriate for gestational age. No contractions noted. A: 29 y.o. @ 28.6 wks with anemia in , currently asymptomatic. In good condition and can be discharged home per patient wishes. P: Discharge home with instructions. Pt to follow up in office. Condition at discharge: Good Disposition: 01 HOME / SELF CARE / HOMELESS - Discharge Diagnoses (1) Anemia Status: Chronic Qualifiers: Anemia type: iron deficiency Comment: RX provided for bid iron Plan - Provider Discharge Summary Diet: routine Instructions: routine Additional instructions: [] Smoking cessation referral if applicable(refer to patient education folder for contact #) [] Refer to [facility] Booklet Call your doctor immediately for: * Fever > 100.5 * Heavy vaginal bleeding ( >1 pad per hour) * Severe persistent headache * Shortness of breath * Reddened, hot, painful area to leg or breast * Drainage or odor from incision. * Keep incision clean and dry at all times and follow doctor's instructions regarding bathing/showering Please keep your scheduled appointment in the office. If you feel faint, dizzy, lightheaded please call the agricultural education professor provider and come to [facility] for evaluation. Also if you have vaginal bleeding, you think your water broke, contractions, or the baby is not moving like the baby normally does, please call the agricultural education professor provider and come to triage for and evaluation. If you have any questions or concerns after discharge, please do not hesitate to call the office @ [phone]. - Follow up plan Follow up: LEROY MCIHAELS MD [Primary Care Provider] - 7 Days
[2020-11-29] MEDS ORDERED: PRENATAL VIT27-FE FUMARATE-FOLIC ACID VIT TAB PO SCH (10:00)
== END 2020-11-29 00:37 | disposition home or self-care (01) ==
LOC: LD 18:44
PROVIDERS: ADMIT Obstetrics & Gynecology; ATTEND Obstetrics & Gynecology
DX: O99.013 Anemia complicating pregnancy, third trimester (principal); D64.9 Anemia, unspecified; M32.9 Systemic lupus erythematosus, unspecified; Z3A.28 28 weeks gestation of pregnancy
CPT/HCPCS: 36415; 85025; 86850; 86900; 86901; 86920; G0378; G0379

== ENCOUNTER 2021-01-29 21:22 | Inpatient (IN) | payer MEDICAID ==
[2021-01-29] MEDS ORDERED: BUTALB/ACETAMINOPHEN/CAFFEINE TAB PO ONE (22:30)
[2021-01-29] MEDS ORDERED: BICITRA ORAL LIQD 30ML PO ONE (22:30)
[2021-01-29 23:00] LABS: Bacteria,Urine 1+ /HPF (Negative); Bilirubin,Urine NEG (Negative); Blood,Urine SM (Negative); Color,Urine Yellow (Yellow); Mucus,Urine FEW /HPF
[2021-01-29 23:03] LABS: Mean Corpuscular HGB Conc 28 % (30-34); Platelet Count 233 K/mm3 (140-440)
[2021-01-29 23:07] LABS: Hematocrit 21.7 % (30.3-42.9); Mean Corpuscular Volume 68 fl (79-97); Red Cell Distribution Width 22.2 % (13.2-15.2)
[2021-01-29 23:12] LABS: Uric Acid 4.4 mg/dL (3.5-7.6)
[2021-01-29 23:13] LABS: Alanine Aminotransferase < 5 units/L (7-56)
[2021-01-30] MEDS ORDERED: DOCUSATE SODIUM 100 MG CAP PO PRN (00:01)
[2021-01-30] MEDS ORDERED: ONDANSETRON 4 MG/2 ML INJ IV PRN (00:01)
[2021-01-30] MEDS ORDERED: ACETAMINOPHEN 325 MG TAB PO PRN (00:01)
[2021-01-30] MEDS ORDERED: SODIUM CHLORIDE 0.9% 500 ML 500 ML IV ONE (00:04)
--- NOTE | 2021-01-30 00:10 | History and Physical Report ---
History of Present Illness Date of examination: 01/30/21 Chief complaint: heart burn x 2 months and HARRIS since December History of present illness: EDC Calculations LMP: 02/15/2021 Past History : 4 Para: 3 Risk Factors: Smoked Tobacco Use: Never smoker Smokeless Tobacco Use: Never Passive smoke exposure: no Drug use: no HIV high-risk behavior: low risk Caffeine use: 0 drinks per day Alcohol use: no Exercise: yes Times per week: 7 Seatbelt use: preg-relationship counselor % Family History Risk Factors: Family History of KS in females < 65 years old: no Family History of KS in males < 55 years old: no Dietary Counseling: pn yes Past Medical History: Reviewed history from 05/25/2018 and no changes required: Anemia with , iron infusion with second lupus, dx with 2nd . taking naproxen with exacerbations, not currently taking in Past Surgical History: Reviewed history from 05/25/2018 and no changes required: negative Family History Summary: Reviewed history Last on 09/13/2012 and no changes required:07/07/2020 PGM - Has Family History of Diabetes - Entered On: 07/07/2020 Father - Has Family History of Hypertension - Entered On: 09/19/2013 Mother - Has Family History of Hypertension - Entered On: 09/19/2013 MGM - Has Family History of Hypertension - Entered On: 09/19/2013 PGM - Has Family History of Hypertension - Entered On: 09/19/2013 General Comments - FH: Family History of Hypertension No Family History of Breast Cancer No Family History of Colon Cancer No Family History of Ovarvian Cancer Social History: Patient is single no etoh, no illicit drug use, no tobacco use Smoking History: Patient has never smoked. Past Medical History Anesthesia Complications: negative Anemia: negative Autoimmune Disorder: negative Bleeding Disorder: negative Blood Transfusions: negative Breast Disease: negative Diabetes: negative Heart Disease: negative Hypertension: negative Hepatitis/Liver Disease: negative Kidney Disease/UTI: negative Neurologic/Epilepsy/Migraines: negative Phlebitis/Varicosities: negative Psychiatric: negative Pulmonary Disease/Asthma: negative Thyroid Disease: negative Hospitalizations: negative Surgery (Non-hvac design engineer): negative Abnormal PAP: positive, in 2014 CHANTE Exposure: negative Infertility: negative Uterine Anomaly: negative Uterine Surgery (not C/S): negative Other Gynecologic Problems: negative Social Hx: Patient is single no etoh, no illicit drug use, no tobacco use Smoking History: Patient has never smoked. Infection History Hx of STD: none HIV Risk Eval: low risk Hepatitis B Risk Eval: low risk Personal hx. of genital herpes: yes Partner hx. of genital herpes: no Rash, Viral, or Febrile illness since last LMP? no Varicella/Chicken Pox Status: Previous Disease TB Risk: no Genetic History Congenital Heart Defect: Mom: no Dad: no Guerda Disease: Mom: no Dad: no Thalassemia Mom: no Dad: no Neural Tube Defect Mom: no Dad: no Down's Syndrome Mom: no Dad: no Samuel-Sachs Mom: no Dad: no Sickle Cell Disease/Trait Mom: no Dad: no Hemophilia Mom: no Dad: no Muscular Dystrophy Mom: no Dad: no Cystic Fibrosis Mom: yes Dad: no [place] Chorea Mom: no Dad: no Mental Retardation Mom: no Dad: no Fragile X Mom: no Dad: no Other Genetic/Chromosomal Disorder Mom: no Dad: no Child w/other defect Mom: no Dad: no Enviromental Exposures Enviromental Exposures Reviewed Xray Exposure: no Medication, drug, or alcohol use since LMP: no Chemical/Other Exposure: no Exposure to Cat Liter: no Hx of Parvovirus (Fifth Disease): no 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 FALSECurrent Allergies (reviewed today): No known allergies Past History Past Medical History: other (see HPI) Past Surgical History: other (see HPI) 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, 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, 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 Family/Genetic History: other (see) Social history: lives with family - Obstetrical History Expected Date of Delivery: 02/15/21 Actual Gestation: 37 Week(s) 5 Day(s) : 4 Para: 3 Hx # Term Pregnancies: 3 Number of Pregnancies: 0 Spontaneous Abortions: 0 Induced : 0 Number of Living Children: 3 Medications and Allergies Allergies Allergy/AdvReac Type Severity Reaction Status Date / Time No Known Allergies Allergy Verified 12/02/18 12:42 Home Medications Medication Instructions Recorded Confirmed Last Taken Type Docusate Sodium [Colace] 100 mg PO BID PRN #60 capsule 12/04/18 Unknown Rx Ferrous Sulfate [Feosol 325 MG tab] 325 mg PO BID #60 tablet 12/04/18 Unknown Rx Ibuprofen [Motrin 800 MG tab] 800 mg PO TID PRN #30 tablet 12/04/18 Unknown Rx valACYclovir [Valtrex] 1,000 mg PO BID #60 tab 12/04/18 Unknown Rx Review of Systems All systems: negative - Vital Signs Vital signs: Vital Signs Pulse BP Pulse Ox 99 H 119/82 100 01/29/21 21:56 01/29/21 21:56 01/29/21 21:56 Temp Pulse Resp BP Pulse Ox 98.8 F 98 H 120/76 100 01/29/21 21:57 01/29/21 23:20 01/29/21 23:13 01/29/21 23:20 - Physical Exam Breasts: Positive: normal Cardiovascular: Regular rate Lungs: Positive: Normal air movement Abdomen: Positive: normal appearance, soft Genitourinary (Female): Positive: normal external genitalia, normal perenium Vulva: both: normal Deep Tendon Reflex Grade: Normal +2 - Obstetrical FHR: category 1 Uterine Contraction Monitor Mode: External Results Result Diagrams: 01/30/21 12:44 01/29/21 22:25 Abnormal lab results 01/29/21 01/29/21 Range/Units 22:25 22:25 RBC 3.20 L (3.65-5.03) M/mm3 Hgb 6.0 L (10.1-14.3) gm/dl Hct 21.7 L (30.3-42.9) % MCV 68 L (79-97) fl MCH 19 L (28-32) pg MCHC 28 L (30-34) % RDW 22.2 H (13.2-15.2) % Creatinine 0.4 L (0.6-1.2) mg/dL ALT < 5 L (7-56) units/L Lactate Dehydrogenase 256 H (91-180) units/L All other labs normal. Assessment and Plan 30 y/o @ 37+5 weeks presented to L&D with c/o headaches since December and heart burn x 3 months. Pt was seen in office by Dr. Zurita 01/29 and instructed to go to triage for further pre-e evaluation at that time, patient declined. Pt's hx significant for chronic anemia on PO FE, pt has declined previous attempts at blood transfusions. (Her H&H was 10/01 on 10/28/20, she was referred to hematology at that time). Pt reports HARRIS is relieved by laying down and worsens when sitting up. She denies visual changes. b/p mostly normal, highest reading 141/67. Maternal tachycardia 100's. Pt admitted for 24hr urine and blood transfusion. Admission orders in EMR. 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
[2021-01-30] MEDS ORDERED: FAMOTIDINE 20 MG/2 ML INJ IV ONE (00:51)
[2021-01-30] MEDS: LACTATED RINGERS 1,000 ML IV SCH (00:56)
--- NOTE | 2021-01-30 08:51 | Progress Note ---
Assessment and Plan Pt denies HARRIS, RUQ pain, and vision changes. Reports ambulating and voiding well and without difficulty. Reports painful contractions. SVE performed and pt tolerated well. Mallory FISHER present for assessment. POC d/w pt. Questions encouraged and answered. Pt verbalizes understanding and agrees to POC. - Patient Problems (1) 37 weeks gestation of Current Visit: Yes Status: Acute Plan to address problem: continuous monitoring notify provider with any changes in status (2) Noncompliance by declining intervention or support Current Visit: Yes Status: Acute Plan to address problem: continue 24hr urine collection monitor BP per protocol (3) Anemia Current Visit: Yes Status: Chronic Qualifiers: Anemia type: iron deficiency Plan to address problem: Draw H&H 6h post transfusion (4) Lupus Current Visit: Yes Status: Chronic (5) Herpes genitalis Current Visit: No Status: Acute Plan to address problem: Valtrex ordered Subjective - Subjective Date of service: 01/30/21 Principal diagnosis: IUP@37.5, anemia, HARRIS, elevated BP Patient reports: new complaints, movement normal, contractions, no loss of fluid, no vaginal bleeding Objective - Vital Signs Vital Signs: Vital Signs - 12hr 01/29/21 01/29/21 01/29/21 21:56 21:57 22:01 Temperature 98.8 F Pulse Rate 99 H 99 H 108 H Respiratory Rate Blood Pressure 119/82 Blood Pressure 132/70 [Left] O2 Sat by Pulse 100 100 Oximetry O2 Sat by Pulse Oximetry [ Bilateral Throughout] 01/29/21 01/29/21 01/29/21 22:06 22:11 22:12 Temperature Pulse Rate 101 H 102 H 102 H Respiratory Rate Blood Pressure 132/70 Blood Pressure [Left] O2 Sat by Pulse 100 100 Oximetry O2 Sat by Pulse Oximetry [ Bilateral Throughout] 01/29/21 01/29/21 01/29/21 22:16 22:21 22:26 Temperature Pulse Rate 99 H 95 H 103 H Respiratory Rate Blood Pressure Blood Pressure [Left] O2 Sat by Pulse 100 100 100 Oximetry O2 Sat by Pulse Oximetry [ Bilateral Throughout] 01/29/21 01/29/21 01/29/21 22:27 22:31 22:36 Temperature Pulse Rate 100 H 100 H 100 H Respiratory Rate Blood Pressure 133/77 Blood Pressure [Left] O2 Sat by Pulse 100 99 Oximetry O2 Sat by Pulse Oximetry [ Bilateral Throughout] 01/29/21 01/29/21 01/29/21 22:41 22:43 22:46 Temperature Pulse Rate 96 H 93 H 104 H Respiratory Rate Blood Pressure 141/67 Blood Pressure [Left] O2 Sat by Pulse 99 98 Oximetry O2 Sat by Pulse Oximetry [ Bilateral Throughout] 01/29/21 01/29/21 01/29/21 22:51 22:56 23:05 Temperature Pulse Rate 97 H 92 H 104 H Respiratory Rate Blood Pressure Blood Pressure [Left] O2 Sat by Pulse 99 99 99 Oximetry O2 Sat by Pulse Oximetry [ Bilateral Throughout] 01/29/21 01/29/21 01/29/21 23:10 23:13 23:15 Temperature Pulse Rate 93 H 102 H 94 H Respiratory Rate Blood Pressure 120/76 Blood Pressure [Left] O2 Sat by Pulse 100 99 Oximetry O2 Sat by Pulse Oximetry [ Bilateral Throughout] 01/29/21 01/30/21 01/30/21 23:20 00:43 00:48 Temperature Pulse Rate 98 H 97 H 85 Respiratory Rate Blood Pressure 120/80 Blood Pressure [Left] O2 Sat by Pulse 100 98 99 Oximetry O2 Sat by Pulse Oximetry [ Bilateral Throughout] 01/30/21 01/30/21 01/30/21 00:53 00:58 01:03 Temperature Pulse Rate 100 H 91 H 89 Respiratory Rate Blood Pressure Blood Pressure [Left] O2 Sat by Pulse 99 99 99 Oximetry O2 Sat by Pulse Oximetry [ Bilateral Throughout] 01/30/21 01/30/21 01/30/21 01:08 01:13 01:18 Temperature Pulse Rate 91 H 93 H 97 H Respiratory Rate Blood Pressure Blood Pressure [Left] O2 Sat by Pulse 99 100 100 Oximetry O2 Sat by Pulse Oximetry [ Bilateral Throughout] 01/30/21 01/30/21 01/30/21 01:23 01:28 01:33 Temperature Pulse Rate 85 90 94 H Respiratory Rate Blood Pressure Blood Pressure [Left] O2 Sat by Pulse 100 100 100 Oximetry O2 Sat by Pulse Oximetry [ Bilateral Throughout] 01/30/21 01/30/21 01/30/21 01:38 01:43 01:48 Temperature Pulse Rate 93 H 85 89 Respiratory Rate Blood Pressure Blood Pressure [Left] O2 Sat by Pulse 99 99 100 Oximetry O2 Sat by Pulse Oximetry [ Bilateral Throughout] 01/30/21 01/30/21 01/30/21 01:53 01:58 02:03 Temperature Pulse Rate 92 H 86 96 H Respiratory Rate Blood Pressure Blood Pressure [Left] O2 Sat by Pulse 100 99 99 Oximetry O2 Sat by Pulse Oximetry [ Bilateral Throughout] 01/30/21 01/30/21 01/30/21 02:08 02:13 02:18 Temperature Pulse Rate 89 90 91 H Respiratory Rate Blood Pressure Blood Pressure [Left] O2 Sat by Pulse 100 100 100 Oximetry O2 Sat by Pulse Oximetry [ Bilateral Throughout] 01/30/21 01/30/21 01/30/21 02:23 02:28 02:33 Temperature Pulse Rate 92 H 88 94 H Respiratory Rate Blood Pressure Blood Pressure [Left] O2 Sat by Pulse 99 100 100 Oximetry O2 Sat by Pulse Oximetry [ Bilateral Throughout] 01/30/21 01/30/21 01/30/21 02:38 02:43 02:51 Temperature Pulse Rate 91 H 86 93 H Respiratory Rate Blood Pressure Blood Pressure [Left] O2 Sat by Pulse 99 100 100 Oximetry O2 Sat by Pulse Oximetry [ Bilateral Throughout] 01/30/21 01/30/21 01/30/21 02:56 03:01 03:03 Temperature Pulse Rate 84 85 89 Respiratory Rate Blood Pressure 115/77 Blood Pressure [Left] O2 Sat by Pulse 100 100 Oximetry O2 Sat by Pulse Oximetry [ Bilateral Throughout] 01/30/21 01/30/21 01/30/21 03:06 03:11 03:16 Temperature Pulse Rate 90 95 H 80 Respiratory Rate Blood Pressure Blood Pressure [Left] O2 Sat by Pulse 100 100 100 Oximetry O2 Sat by Pulse Oximetry [ Bilateral Throughout] 01/30/21 01/30/21 01/30/21 03:21 03:23 03:26 Temperature 97.8 F Pulse Rate 81 81 89 Respiratory 18 Rate Blood Pressure 118/66 113/70 Blood Pressure [Left] O2 Sat by Pulse 99 100 Oximetry O2 Sat by Pulse Oximetry [ Bilateral Throughout] 01/30/21 01/30/21 01/30/21 03:31 03:36 03:38 Temperature Pulse Rate 88 90 87 Respiratory Rate Blood Pressure 119/75 Blood Pressure [Left] O2 Sat by Pulse 99 97 Oximetry O2 Sat by Pulse Oximetry [ Bilateral Throughout] 01/30/21 01/30/21 01/30/21 03:41 03:46 03:51 Temperature Pulse Rate 94 H 85 99 H Respiratory Rate Blood Pressure Blood Pressure [Left] O2 Sat by Pulse 99 99 99 Oximetry O2 Sat by Pulse Oximetry [ Bilateral Throughout] 01/30/21 01/30/21 01/30/21 03:53 03:56 04:01 Temperature Pulse Rate 86 94 H 89 Respiratory Rate Blood Pressure 113/70 Blood Pressure [Left] O2 Sat by Pulse 99 99 Oximetry O2 Sat by Pulse Oximetry [ Bilateral Throughout] 01/30/21 01/30/21 01/30/21 04:06 04:09 04:11 Temperature Pulse Rate 87 85 89 Respiratory Rate Blood Pressure 106/66 Blood Pressure [Left] O2 Sat by Pulse 98 100 Oximetry O2 Sat by Pulse Oximetry [ Bilateral Throughout] 01/30/21 01/30/21 01/30/21 04:18 04:23 04:28 Temperature Pulse Rate 82 93 H 95 H Respiratory Rate Blood Pressure 107/75 Blood Pressure [Left] O2 Sat by Pulse 100 100 99 Oximetry O2 Sat by Pulse Oximetry [ Bilateral Throughout] 01/30/21 01/30/21 01/30/21 04:33 04:38 04:39 Temperature Pulse Rate 86 80 78 Respiratory Rate Blood Pressure 120/72 Blood Pressure [Left] O2 Sat by Pulse 97 100 Oximetry O2 Sat by Pulse Oximetry [ Bilateral Throughout] 01/30/21 01/30/21 01/30/21 04:43 04:48 04:53 Temperature Pulse Rate 86 83 91 H Respiratory Rate Blood Pressure 114/71 Blood Pressure [Left] O2 Sat by Pulse 100 100 100 Oximetry O2 Sat by Pulse Oximetry [ Bilateral Throughout] 01/30/21 01/30/21 01/30/21 04:58 05:03 05:07 Temperature Pulse Rate 80 78 77 Respiratory Rate Blood Pressure 117/75 Blood Pressure [Left] O2 Sat by Pulse 100 100 Oximetry O2 Sat by Pulse Oximetry [ Bilateral Throughout] 01/30/21 01/30/21 01/30/21 05:08 05:13 05:22 Temperature Pulse Rate 78 79 84 Respiratory Rate Blood Pressure 113/77 Blood Pressure [Left] O2 Sat by Pulse 99 100 Oximetry O2 Sat by Pulse Oximetry [ Bilateral Throughout] 01/30/21 01/30/21 01/30/21 05:37 05:42 05:47 Temperature Pulse Rate 105 H 98 H 89 Respiratory Rate Blood Pressure Blood Pressure [Left] O2 Sat by Pulse 100 99 100 Oximetry O2 Sat by Pulse Oximetry [ Bilateral Throughout] 01/30/21 01/30/21 01/30/21 05:52 05:57 06:02 Temperature Pulse Rate 102 H 84 83 Respiratory Rate Blood Pressure Blood Pressure [Left] O2 Sat by Pulse 99 100 99 Oximetry O2 Sat by Pulse Oximetry [ Bilateral Throughout] 01/30/21 01/30/21 01/30/21 06:07 06:12 06:17 Temperature Pulse Rate 87 86 87 Respiratory Rate Blood Pressure Blood Pressure [Left] O2 Sat by Pulse 99 99 98 Oximetry O2 Sat by Pulse Oximetry [ Bilateral Throughout] 01/30/21 01/30/21 01/30/21 06:22 06:27 06:32 Temperature Pulse Rate 86 87 101 H Respiratory Rate Blood Pressure Blood Pressure [Left] O2 Sat by Pulse 99 99 99 Oximetry O2 Sat by Pulse Oximetry [ Bilateral Throughout] 01/30/21 01/30/21 01/30/21 06:37 06:42 06:47 Temperature Pulse Rate 90 81 86 Respiratory Rate Blood Pressure Blood Pressure [Left] O2 Sat by Pulse 99 99 99 Oximetry O2 Sat by Pulse Oximetry [ Bilateral Throughout] 01/30/21 01/30/21 01/30/21 06:52 06:57 07:02 Temperature Pulse Rate 88 82 85 Respiratory Rate Blood Pressure Blood Pressure [Left] O2 Sat by Pulse 98 98 98 Oximetry O2 Sat by Pulse Oximetry [ Bilateral Throughout] 01/30/21 01/30/21 01/30/21 07:07 07:12 07:17 Temperature Pulse Rate 92 H 105 H 83 Respiratory Rate Blood Pressure Blood Pressure [Left] O2 Sat by Pulse 100 98 99 Oximetry O2 Sat by Pulse Oximetry [ Bilateral Throughout] 01/30/21 01/30/21 01/30/21 07:21 07:22 07:27 Temperature Pulse Rate 86 87 86 Respiratory Rate Blood Pressure 99/54 Blood Pressure [Left] O2 Sat by Pulse 99 98 Oximetry O2 Sat by Pulse Oximetry [ Bilateral Throughout] 01/30/21 01/30/21 01/30/21 07:32 07:37 07:42 Temperature Pulse Rate 89 85 89 Respiratory Rate Blood Pressure Blood Pressure [Left] O2 Sat by Pulse 99 99 99 Oximetry O2 Sat by Pulse Oximetry [ Bilateral Throughout] 01/30/21 01/30/21 01/30/21 07:47 07:52 07:57 Temperature Pulse Rate 84 90 96 H Respiratory Rate Blood Pressure Blood Pressure [Left] O2 Sat by Pulse 99 99 100 Oximetry O2 Sat by Pulse Oximetry [ Bilateral Throughout] 01/30/21 01/30/21 01/30/21 08:02 08:03 08:07 Temperature Pulse Rate 94 H 86 Respiratory Rate Blood Pressure Blood Pressure [Left] O2 Sat by Pulse 99 99 Oximetry O2 Sat by Pulse 100 Oximetry [ Bilateral Throughout] 01/30/21 01/30/21 01/30/21 08:12 08:17 08:21 Temperature Pulse Rate 85 96 H 109 H Respiratory Rate Blood Pressure 120/76 Blood Pressure [Left] O2 Sat by Pulse 99 100 Oximetry O2 Sat by Pulse Oximetry [ Bilateral Throughout] 01/30/21 01/30/21 01/30/21 08:22 08:27 08:32 Temperature Pulse Rate 98 H 92 H 97 H Respiratory Rate Blood Pressure Blood Pressure [Left] O2 Sat by Pulse 99 99 99 Oximetry O2 Sat by Pulse Oximetry [ Bilateral Throughout] 01/30/21 01/30/21 01/30/21 08:37 08:42 08:47 Temperature Pulse Rate 91 H 113 H 93 H Respiratory Rate Blood Pressure Blood Pressure [Left] O2 Sat by Pulse 99 99 100 Oximetry O2 Sat by Pulse Oximetry [ Bilateral Throughout] - Exam Breasts: deferred Cardiovascular: Regular rate Lungs: Normal air movement Abdomen: Present: normal appearance, soft. Absent: tenderness Vulva: both: normal Uterus: Present: normal, other (gravid) FHR: auscultation normal, category 1 Uterine Contraction Monitor Mode: External Cervical Dilatation: 0 Cervical Effacement Percentage: 30 station: -4 Uterine Contraction Pattern: Regular Uterine Tone Measurement Phase: Contraction Uterine Contraction Intensity: Mild Extremities: normal - Labs Labs: Abnormal Labs 01/29/21 01/29/21 01/30/21 22:25 22:25 00:34 RBC 3.20 L Hgb 6.0 L Hct 21.7 L MCV 68 L MCH 19 L MCHC 28 L RDW 22.2 H Creatinine 0.4 L ALT < 5 L Lactate Dehydrogenase 256 H Crossmatch See Detail Laboratory Results - last 24 hr 10/21/21 10/21/21 10/21/21 22:25 22:25 22:25 WBC 7.8 RBC 3.20 L Hgb 6.0 L Hct 21.7 L MCV 68 L MCH 19 L MCHC 28 L RDW 22.2 H Plt Count 233 Creatinine 0.4 L Estimated GFR > 60 Uric Acid 4.4 AST 17 ALT < 5 L Lactate Dehydrogenase 256 H Urine Color Yellow Urine Turbidity Clear Urine pH 6.0 Ur Specific [place] 1.020 Urine Protein 30 mg/dl Urine Glucose (UA) Neg Urine Ketones Neg Urine Blood Sm Urine Nitrite Neg Urine Bilirubin Neg Urine Urobilinogen 2.0 Ur Leukocyte Esterase Neg Urine WBC (Auto) 1.0 Urine RBC (Auto) 1.0 U Epithel Cells (Auto) 4.0 Urine Bacteria (Auto) 1+ Urine Mucus Few Syphilis IgG Antibody Blood Type Antibody Screen Crossmatch 01/30/21 01/30/21 00:34 07:06 WBC RBC Hgb Hct MCV MCH MCHC RDW Plt Count Creatinine Estimated GFR Uric Acid AST ALT Lactate Dehydrogenase Urine Color Urine Turbidity Urine pH Ur Specific [place] Urine Protein Urine Glucose (UA) Urine Ketones Urine Blood Urine Nitrite Urine Bilirubin Urine Urobilinogen Ur Leukocyte Esterase Urine WBC (Auto) Urine RBC (Auto) U Epithel Cells (Auto) Urine Bacteria (Auto) Urine Mucus Syphilis IgG Antibody Nonreactive Blood Type B POSITIVE Antibody Screen Negative Crossmatch See Detail
[2021-01-30] MEDS: PRENATAL VIT27-FE FUMARATE-FOLIC ACID VIT TAB PO SCH (11:15)
[2021-01-30] MEDS: valACYclovir 500 MG TAB PO SCH ×2 (11:15→21:57)
[2021-01-30] MEDS ORDERED: BUTALB/ACETAMINOPHEN/CAFFEINE TAB PO ONE (12:00)
--- NOTE | 2021-01-30 13:36 | Ultrasound Report ---
ULTRASOUND OBSTETRIC LIMITED INDICATION / CLINICAL INFORMATION: EFW and presentation. Clinical Gestational Age (GA) in weeks, days: 37 weeks 5 days TECHNIQUE: Transabdominal. COMPARISON: None available. FINDINGS: Single live IUP in cephalic presentation. heart rate measures 140 bpm. MEASUREMENTS: - Biparietal Diameter = 8.6 cm = 34 weeks 4 days - Head Circumference = 31.8 cm = 35 weeks 5 days - Abdominal Circumference = 32.1 cm = 36 weeks 0 days - Femur Length = 7 cm = 35 weeks 5 days - Estimated Weight (in grams, if calculated): 2763 Amniotic fluid volume is within normal limits with TEA measuring 11.2 cm. IMPRESSION: 1. Single live IUP in cephalic presentation. Estimated weight is 2763 g. Signer Name: Dixon Cowan MD Signed: 01/30/2021 1:31 PM Workstation Name: [id number]
[2021-01-30 14:37] LABS: Hematocrit 21.3 % (30.3-42.9); Hemoglobin 6.9 gm/dl (10.1-14.3)
--- NOTE | 2021-01-30 18:37 | Event Note ---
Date: 01/30/[address] Shi as this pt is shared between the practices and recommends delivery at this time due to elevated blood pressure, headaches and protein in urine. Plan of care d/w pt and her family. All questions were addressed and answered. RN at bedside and plan for pitocin was discussed with pt.
[2021-01-30] MEDS: OXYTOCIN DRIP 30 UNITS/500 ML BAG IV SCH (20:39)
[2021-01-31 00:38] LABS: Hematocrit 25.6 % (30.3-42.9); Hemoglobin 7.8 gm/dl (10.1-14.3); Mean Corpuscular HGB Conc 31 % (30-34); Platelet Count 199 K/mm3 (140-440); Red Blood Count 3.78 M/mm3 (3.65-5.03)
[2021-01-31 00:48] LABS: Mean Corpuscular Volume 68 fl (79-97); Red Cell Distribution Width 24.6 % (13.2-15.2)
[2021-01-31] MEDS: LACTATED RINGERS 1,000 ML IV SCH (06:37)
[2021-01-31] MEDS ORDERED: BUTORPHANOL 2 MG/1 ML INJ IV PRN (07:55)
--- NOTE | 2021-01-31 07:55 | Progress Note ---
Assessment and Plan - Patient Problems (1) Mild pre-eclampsia Current Visit: Yes Status: Acute Qualifiers: Trimester: third trimester Qualified Code(s): O14.03 - Mild to moderate pre-eclampsia, third trimester Plan to address problem: -with sever features of HARRIS -BPs stable on no mag at this time -d/w pt and mother need for magnesium should be become severe range as labor progresses. Both expressed understanding and questions were addressed and answered. -cont IOL. I d/w pt and mother that she will to be patient as the baby is too high to rupture and we would like more cervical progression prior to epidural placement. She agees to IV meds at this time, however I reassured her that if she does not get relief with pain meds she can get the epidural. (2) 37 weeks gestation of Current Visit: Yes Status: Acute (3) Headache Current Visit: Yes Status: Acute Qualifiers: Headache chronicity pattern: chronic headache (4) Noncompliance by declining intervention or support Current Visit: Yes Status: Acute (5) Anemia Current Visit: Yes Status: Chronic Qualifiers: Anemia type: iron deficiency (6) Lupus Current Visit: Yes Status: Chronic (7) Herpes genitalis Current Visit: No Status: Acute Plan to address problem: -no active lesions on vaginal on rectum -s/p valtrex for suppressive therapy Subjective - Subjective Date of service: 01/31/21 Principal diagnosis: IUP@37.5, anemia, HARRIS, elevated BP Interval history: pt requesting epidural. I advised I would like to examine her first. She expressed understanding and agrees to the exam. Patient reports: new complaints, movement normal, contractions, no loss of fluid, no vaginal bleeding Objective - Vital Signs Vital Signs: Vital Signs - 12hr 01/30/21 01/30/21 01/30/21 19:52 19:57 20:02 Temperature Pulse Rate 105 H 99 H 101 H Respiratory Rate Blood Pressure Blood Pressure [Left] O2 Sat by Pulse 100 100 100 Oximetry O2 Sat by Pulse Oximetry [ Bilateral Throughout] 01/30/21 01/30/21 01/30/21 20:07 20:12 20:17 Temperature Pulse Rate 103 H 95 H 105 H Respiratory Rate Blood Pressure Blood Pressure [Left] O2 Sat by Pulse 100 100 100 Oximetry O2 Sat by Pulse Oximetry [ Bilateral Throughout] 01/30/21 01/30/21 01/30/21 20:20 20:21 20:22 Temperature Pulse Rate 102 H 94 H 100 H Respiratory Rate Blood Pressure 113/68 Blood Pressure [Left] O2 Sat by Pulse 94 100 Oximetry O2 Sat by Pulse Oximetry [ Bilateral Throughout] 01/30/21 01/30/21 01/30/21 20:25 20:27 20:32 Temperature Pulse Rate 92 H 110 H 105 H Respiratory Rate Blood Pressure Blood Pressure [Left] O2 Sat by Pulse 89 100 100 Oximetry O2 Sat by Pulse Oximetry [ Bilateral Throughout] 01/30/21 01/30/21 01/30/21 20:38 20:43 20:48 Temperature Pulse Rate 82 99 H 96 H Respiratory Rate Blood Pressure Blood Pressure [Left] O2 Sat by Pulse 89 100 100 Oximetry O2 Sat by Pulse Oximetry [ Bilateral Throughout] 01/30/21 01/30/21 01/30/21 20:53 20:58 21:03 Temperature Pulse Rate 99 H 94 H 100 H Respiratory Rate Blood Pressure Blood Pressure [Left] O2 Sat by Pulse 100 99 100 Oximetry O2 Sat by Pulse Oximetry [ Bilateral Throughout] 01/30/21 01/30/21 01/30/21 21:07 21:08 21:13 Temperature Pulse Rate 62 104 H 97 H Respiratory Rate Blood Pressure Blood Pressure [Left] O2 Sat by Pulse 82 L 100 100 Oximetry O2 Sat by Pulse Oximetry [ Bilateral Throughout] 01/30/21 01/30/21 01/30/21 21:18 21:21 21:22 Temperature Pulse Rate 107 H 98 H 100 H Respiratory Rate Blood Pressure 121/71 Blood Pressure [Left] O2 Sat by Pulse 100 90 Oximetry O2 Sat by Pulse Oximetry [ Bilateral Throughout] 01/30/21 01/30/21 01/30/21 21:23 21:28 21:33 Temperature Pulse Rate 106 H 110 H 99 H Respiratory Rate Blood Pressure Blood Pressure [Left] O2 Sat by Pulse 100 92 100 Oximetry O2 Sat by Pulse Oximetry [ Bilateral Throughout] 01/30/21 01/30/21 01/30/21 21:38 21:43 21:48 Temperature Pulse Rate 92 H 91 H 88 Respiratory Rate Blood Pressure Blood Pressure [Left] O2 Sat by Pulse 100 100 98 Oximetry O2 Sat by Pulse Oximetry [ Bilateral Throughout] 01/30/21 01/30/21 01/30/21 21:53 22:04 22:09 Temperature Pulse Rate 85 75 98 H Respiratory Rate Blood Pressure Blood Pressure [Left] O2 Sat by Pulse 97 82 L 100 Oximetry O2 Sat by Pulse Oximetry [ Bilateral Throughout] 01/30/21 01/30/21 01/30/21 22:14 22:19 22:21 Temperature Pulse Rate 96 H 100 H 94 H Respiratory Rate Blood Pressure 108/72 Blood Pressure [Left] O2 Sat by Pulse 100 100 Oximetry O2 Sat by Pulse Oximetry [ Bilateral Throughout] 01/30/21 01/30/21 01/30/21 22:24 22:29 22:34 Temperature Pulse Rate 94 H 95 H 97 H Respiratory Rate Blood Pressure Blood Pressure [Left] O2 Sat by Pulse 99 99 99 Oximetry O2 Sat by Pulse Oximetry [ Bilateral Throughout] 01/30/21 01/30/21 01/30/21 22:39 22:44 22:49 Temperature Pulse Rate 95 H 125 H 89 Respiratory Rate Blood Pressure Blood Pressure [Left] O2 Sat by Pulse 99 99 100 Oximetry O2 Sat by Pulse Oximetry [ Bilateral Throughout] 01/30/21 01/30/21 01/30/21 22:54 22:59 23:04 Temperature Pulse Rate 89 90 85 Respiratory Rate Blood Pressure Blood Pressure [Left] O2 Sat by Pulse 100 99 100 Oximetry O2 Sat by Pulse Oximetry [ Bilateral Throughout] 01/30/21 01/30/21 01/30/21 23:09 23:14 23:19 Temperature Pulse Rate 85 83 90 Respiratory Rate Blood Pressure Blood Pressure [Left] O2 Sat by Pulse 98 100 100 Oximetry O2 Sat by Pulse Oximetry [ Bilateral Throughout] 01/30/21 01/30/21 01/30/21 23:21 23:24 23:29 Temperature Pulse Rate 90 90 85 Respiratory Rate Blood Pressure 111/68 Blood Pressure [Left] O2 Sat by Pulse 100 100 Oximetry O2 Sat by Pulse Oximetry [ Bilateral Throughout] 01/30/21 01/30/21 01/30/21 23:34 23:35 23:39 Temperature Pulse Rate 96 H 86 89 Respiratory Rate Blood Pressure Blood Pressure [Left] O2 Sat by Pulse 98 86 100 Oximetry O2 Sat by Pulse Oximetry [ Bilateral Throughout] 01/30/21 01/30/21 01/30/21 23:41 23:44 23:52 Temperature Pulse Rate 95 H 89 102 H Respiratory Rate Blood Pressure Blood Pressure [Left] O2 Sat by Pulse 92 99 98 Oximetry O2 Sat by Pulse Oximetry [ Bilateral Throughout] 01/30/21 01/30/21 01/31/21 23:53 23:57 00:02 Temperature Pulse Rate 91 H 86 91 H Respiratory Rate Blood Pressure Blood Pressure [Left] O2 Sat by Pulse 91 99 100 Oximetry O2 Sat by Pulse Oximetry [ Bilateral Throughout] 01/31/21 01/31/21 01/31/21 00:07 00:12 00:17 Temperature Pulse Rate 91 H 88 92 H Respiratory Rate Blood Pressure Blood Pressure [Left] O2 Sat by Pulse 100 99 100 Oximetry O2 Sat by Pulse Oximetry [ Bilateral Throughout] 01/31/21 01/31/21 01/31/21 00:21 00:22 00:27 Temperature Pulse Rate 93 H 89 81 Respiratory Rate Blood Pressure 125/63 Blood Pressure [Left] O2 Sat by Pulse 99 100 Oximetry O2 Sat by Pulse Oximetry [ Bilateral Throughout] 01/31/21 01/31/21 01/31/21 00:29 00:32 00:37 Temperature Pulse Rate 89 92 H 81 Respiratory Rate Blood Pressure Blood Pressure [Left] O2 Sat by Pulse 94 99 100 Oximetry O2 Sat by Pulse Oximetry [ Bilateral Throughout] 01/31/21 01/31/21 01/31/21 00:42 00:47 00:52 Temperature Pulse Rate 83 81 81 Respiratory Rate Blood Pressure Blood Pressure [Left] O2 Sat by Pulse 100 100 99 Oximetry O2 Sat by Pulse Oximetry [ Bilateral Throughout] 01/31/21 01/31/21 01/31/21 00:57 01:02 01:07 Temperature Pulse Rate 79 85 82 Respiratory Rate Blood Pressure Blood Pressure [Left] O2 Sat by Pulse 99 99 98 Oximetry O2 Sat by Pulse Oximetry [ Bilateral Throughout] 01/31/21 01/31/21 01/31/21 01:12 01:16 01:17 Temperature Pulse Rate 98 H 93 H Respiratory Rate Blood Pressure Blood Pressure [Left] O2 Sat by Pulse 98 78 L 100 Oximetry O2 Sat by Pulse Oximetry [ Bilateral Throughout] 01/31/21 01/31/21 01/31/21 01:22 01:27 01:32 Temperature Pulse Rate 81 82 84 Respiratory Rate Blood Pressure Blood Pressure [Left] O2 Sat by Pulse 98 98 98 Oximetry O2 Sat by Pulse Oximetry [ Bilateral Throughout] 01/31/21 01/31/2101/31/21 01:37 01:42 01:47 Temperature Pulse Rate 80 78 80 Respiratory Rate Blood Pressure Blood Pressure [Left] O2 Sat by Pulse 98 99 97 Oximetry O2 Sat by Pulse Oximetry [ Bilateral Throughout] 01/31/21 01/31/21 01/31/21 01:52 01:57 02:02 Temperature Pulse Rate 78 82 81 Respiratory Rate Blood Pressure Blood Pressure [Left] O2 Sat by Pulse 98 97 97 Oximetry O2 Sat by Pulse Oximetry [ Bilateral Throughout] 01/31/21 01/31/21 01/31/21 02:07 02:12 02:17 Temperature Pulse Rate 80 80 80 Respiratory Rate Blood Pressure Blood Pressure [Left] O2 Sat by Pulse 97 98 97 Oximetry O2 Sat by Pulse Oximetry [ Bilateral Throughout] 01/31/21 01/31/21 01/31/21 02:22 02:27 02:32 Temperature Pulse Rate 81 85 82 Respiratory Rate Blood Pressure Blood Pressure [Left] O2 Sat by Pulse 97 97 98 Oximetry O2 Sat by Pulse Oximetry [ Bilateral Throughout] 01/31/21 01/31/21 01/31/21 02:37 02:42 02:47 Temperature Pulse Rate 81 80 82 Respiratory Rate Blood Pressure Blood Pressure [Left] O2 Sat by Pulse 98 98 97 Oximetry O2 Sat by Pulse Oximetry [ Bilateral Throughout] 01/31/21 01/31/21 01/31/21 02:52 02:54 02:57 Temperature Pulse Rate 85 48 L 45 L Respiratory Rate Blood Pressure Blood Pressure [Left] O2 Sat by Pulse 99 89 85 Oximetry O2 Sat by Pulse Oximetry [ Bilateral Throughout] 01/31/21 01/31/21 01/31/21 03:02 03:07 03:14 Temperature Pulse Rate 62 46 L 60 Respiratory Rate Blood Pressure Blood Pressure [Left] O2 Sat by Pulse 85 46 L 99 Oximetry O2 Sat by Pulse Oximetry [ Bilateral Throughout] 01/31/21 01/31/21 01/31/21 03:15 03:19 03:37 Temperature Pulse Rate 93 H 38 L Respiratory Rate Blood Pressure Blood Pressure [Left] O2 Sat by Pulse 50 L 79 L 79 L Oximetry O2 Sat by Pulse Oximetry [ Bilateral Throughout] 01/31/21 01/31/21 07:26 07:31 Temperature 97.7 F Pulse Rate 80 86 Respiratory 16 Rate Blood Pressure 128/72 Blood Pressure 128/72 [Left] O2 Sat by Pulse Oximetry O2 Sat by Pulse 100 Oximetry [ Bilateral Throughout] - Exam Cardiovascular: Normal S1, Normal S2 Abdomen: Present: normal appearance, soft. Absent: distention, tenderness, guarding FHR: category 1 Cervical Dilatation: 3 Cervical Effacement Percentage: 70 station: -2 Uterine Contraction Pattern: Regular Uterine Tone Measurement Phase: Resting Uterine Contraction Intensity: Moderate Extremities: normal - Labs Labs: Abnormal Labs 01/29/21 01/29/21 01/30/21 22:25 22:25 00:34 RBC 3.20 L Hgb 6.0 L Hct 21.7 L MCV 68 L MCH 19 L MCHC 28 L RDW 22.2 H Creatinine 0.4 L ALT < 5 L Lactate Dehydrogenase 256 H Crossmatch See Detail 01/30/21 01/30/21 12:44 23:54 RBC Hgb 6.9 L 7.8 L Hct 21.3 L 25.6 L MCV 68 L MCH 21 L MCHC RDW 24.6 H Creatinine ALT Lactate Dehydrogenase Crossmatch Laboratory Results - last 24 hr 01/30/21 01/30/21 01/30/21 07:06 12:44 23:54 WBC 8.6 RBC 3.78 Hgb 6.9 L 7.8 L Hct 21.3 L 25.6 L MCV 68 L MCH 21 L MCHC 31 RDW 24.6 H Plt Count 199 Syphilis IgG Antibody Nonreactive Coronavirus (PCR) 01/30/21 Unknown WBC RBC Hgb Hct MCV MCH MCHC RDW Plt Count Syphilis IgG Antibody Coronavirus (PCR) Negative
[2021-01-31] MEDS: FAMOTIDINE 20 MG/2 ML INJ IV SCH (09:19)
[2021-01-31] MEDS: PRENATAL VIT27-FE FUMARATE-FOLIC ACID VIT TAB PO SCH (10:30)
[2021-01-31] MEDS: valACYclovir 500 MG TAB PO SCH (10:30)
[2021-01-31] MEDS: OXYTOCIN DRIP 30 UNITS/500 ML BAG IV SCH ×2 (10:32→10:33)
--- NOTE | 2021-01-31 11:22 | Progress Note ---
Assessment and Plan SVE as above Will continue with IOL, Pitocin per protocol - Patient Problems (1) 37 weeks gestation of Current Visit: Yes Status: Acute (2) Mild pre-eclampsia Current Visit: Yes Status: Acute Qualifiers: Trimester: third trimester Qualified Code(s): O14.03 - Mild to moderate pre-eclampsia, third trimester Plan to address problem: Will continue to monitor BP Continue with IOL (3) Anemia Current Visit: Yes Status: Chronic Qualifiers: Anemia type: iron deficiency Plan to address problem: s/p 2 units PRBCs (4) Lupus Current Visit: Yes Status: Chronic (5) Herpes genitalis Current Visit: No Status: Acute Plan to address problem: No active lesions Patient compliant with suppressive therapy Subjective - Subjective Date of service: 01/31/21 Principal diagnosis: IUP@37.5, anemia, HARRIS, elevated BP Interval history: Patient asleep. No complaints. Patient reports: movement normal, contractions, no loss of fluid, no vaginal bleeding Objective - Vital Signs Vital Signs: Vital Signs - 12hr 01/30/21 01/30/21 01/30/21 23:19 23:21 23:24 Temperature Pulse Rate 90 90 90 Respiratory Rate Blood Pressure 111/68 Blood Pressure [Left] O2 Sat by Pulse 100 100 Oximetry O2 Sat by Pulse Oximetry [ Bilateral Throughout] 01/30/21 01/30/21 01/30/21 23:29 23:34 23:35 Temperature Pulse Rate 85 96 H 86 Respiratory Rate Blood Pressure Blood Pressure [Left] O2 Sat by Pulse 100 98 86 Oximetry O2 Sat by Pulse Oximetry [ Bilateral Throughout] 01/30/21 01/30/21 01/30/21 23:39 23:41 23:44 Temperature Pulse Rate 89 95 H 89 Respiratory Rate Blood Pressure Blood Pressure [Left] O2 Sat by Pulse 100 92 99 Oximetry O2 Sat by Pulse Oximetry [ Bilateral Throughout] 01/30/21 01/30/21 01/30/21 23:52 23:53 23:57 Temperature Pulse Rate 102 H 91 H 86 Respiratory Rate Blood Pressure Blood Pressure [Left] O2 Sat by Pulse 98 91 99 Oximetry O2 Sat by Pulse Oximetry [ Bilateral Throughout] 01/31/21 01/31/21 01/31/21 00:02 00:07 00:12 Temperature Pulse Rate 91 H 91 H 88 Respiratory Rate Blood Pressure Blood Pressure [Left] O2 Sat by Pulse 100 100 99 Oximetry O2 Sat by Pulse Oximetry [ Bilateral Throughout] 01/31/21 01/31/21 01/31/21 00:17 00:21 00:22 Temperature Pulse Rate 92 H 93 H 89 Respiratory Rate Blood Pressure 125/63 Blood Pressure [Left] O2 Sat by Pulse 100 99 Oximetry O2 Sat by Pulse Oximetry [ Bilateral Throughout] 01/31/21 01/31/21 01/31/21 00:27 00:29 00:32 Temperature Pulse Rate 81 89 92 H Respiratory Rate Blood Pressure Blood Pressure [Left] O2 Sat by Pulse 100 94 99 Oximetry O2 Sat by Pulse Oximetry [ Bilateral Throughout] 01/31/21 01/31/21 01/31/21 00:37 00:42 00:47 Temperature Pulse Rate 81 83 81 Respiratory Rate Blood Pressure Blood Pressure [Left] O2 Sat by Pulse 100 100 100 Oximetry O2 Sat by Pulse Oximetry [ Bilateral Throughout] 01/31/21 01/31/21 01/31/21 00:52 00:57 01:02 Temperature Pulse Rate 81 79 85 Respiratory Rate Blood Pressure Blood Pressure [Left] O2 Sat by Pulse 99 99 99 Oximetry O2 Sat by Pulse Oximetry [ Bilateral Throughout] 01/31/21 01/31/21 01/31/21 01:07 01:12 01:16 Temperature Pulse Rate 82 98 H Respiratory Rate Blood Pressure Blood Pressure [Left] O2 Sat by Pulse 98 98 78 L Oximetry O2 Sat by Pulse Oximetry [ Bilateral Throughout] 01/31/21 01/31/21 01/31/21 01:17 01:22 01:27 Temperature Pulse Rate 93 H 81 82 Respiratory Rate Blood Pressure Blood Pressure [Left] O2 Sat by Pulse 100 98 98 Oximetry O2 Sat by Pulse Oximetry [ Bilateral Throughout] 01/31/21 01/31/21 01/31/21 01:32 01:37 01:42 Temperature Pulse Rate 84 80 78 Respiratory Rate Blood Pressure Blood Pressure [Left] O2 Sat by Pulse 98 98 99 Oximetry O2 Sat by Pulse Oximetry [ Bilateral Throughout] 01/31/21 01/31/21 01/31/21 01:47 01:52 01:57 Temperature Pulse Rate 80 78 82 Respiratory Rate Blood Pressure Blood Pressure [Left] O2 Sat by Pulse 97 98 97 Oximetry O2 Sat by Pulse Oximetry [ Bilateral Throughout] 01/31/21 01/31/21 01/31/21 02:02 02:07 02:12 Temperature Pulse Rate 81 80 80 Respiratory Rate Blood Pressure Blood Pressure [Left] O2 Sat by Pulse 97 97 98 Oximetry O2 Sat by Pulse Oximetry [ Bilateral Throughout] 01/31/21 01/31/21 01/31/21 02:17 02:22 02:27 Temperature Pulse Rate 80 81 85 Respiratory Rate Blood Pressure Blood Pressure [Left] O2 Sat by Pulse 97 97 97 Oximetry O2 Sat by Pulse Oximetry [ Bilateral Throughout] 01/31/21 01/31/21 01/31/21 02:32 02:37 02:42 Temperature Pulse Rate 82 81 80 Respiratory Rate Blood Pressure Blood Pressure [Left] O2 Sat by Pulse 98 98 98 Oximetry O2 Sat by Pulse Oximetry [ Bilateral Throughout] 01/31/21 01/31/21 01/31/21 02:47 02:52 02:54 Temperature Pulse Rate 82 85 48 L Respiratory Rate Blood Pressure Blood Pressure [Left] O2 Sat by Pulse 97 99 89 Oximetry O2 Sat by Pulse Oximetry [ Bilateral Throughout] 01/31/21 01/31/21 01/31/21 02:57 03:02 03:07 Temperature Pulse Rate 45 L 62 46 L Respiratory Rate Blood Pressure Blood Pressure [Left] O2 Sat by Pulse 85 85 46 L Oximetry O2 Sat by Pulse Oximetry [ Bilateral Throughout] 01/31/21 01/31/21 01/31/21 03:14 03:15 03:19 Temperature Pulse Rate 60 93 H 38 L Respiratory Rate Blood Pressure Blood Pressure [Left] O2 Sat by Pulse 99 50 L 79 L Oximetry O2 Sat by Pulse Oximetry [ Bilateral Throughout] 01/31/21 01/31/21 01/31/21 03:37 07:26 07:31 Temperature 97.7 F Pulse Rate 80 86 Respiratory 16 Rate Blood Pressure 128/72 Blood Pressure 128/72 [Left] O2 Sat by Pulse 79 L Oximetry O2 Sat by Pulse 100 Oximetry [ Bilateral Throughout] 01/31/21 01/31/21 08:21 09:21 Temperature Pulse Rate 73 90 Respiratory Rate Blood Pressure 106/56 117/68 Blood Pressure [Left] O2 Sat by Pulse Oximetry O2 Sat by Pulse Oximetry [ Bilateral Throughout] - Exam Abdomen: Present: normal appearance FHR: category 1 Cervical Dilatation: 4 Cervical Effacement Percentage: 70 station: -2 Uterine Contraction Pattern: Regular Extremities: normal - Labs Labs: Abnormal Labs 01/29/21 01/29/21 01/30/21 22:25 22:25 00:34 RBC 3.20 L Hgb 6.0 L Hct 21.7 L MCV 68 L MCH 19 L MCHC 28 L RDW 22.2 H Creatinine 0.4 L ALT < 5 L Lactate Dehydrogenase 256 H Crossmatch See Detail 01/30/21 01/30/21 12:44 23:54 RBC Hgb 6.9 L 7.8 L Hct 21.3 L 25.6 L MCV 68 L MCH 21 L MCHC RDW 24.6 H Creatinine ALT Lactate Dehydrogenase Crossmatch Laboratory Results - last 24 hr 01/30/21 01/30/21 01/30/21 12:44 23:54 Unknown WBC 8.6 RBC 3.78 Hgb 6.9 L 7.8 L Hct 21.3 L 25.6 L MCV 68 L MCH 21 L MCHC 31 RDW 24.6 H Plt Count 199 Coronavirus (PCR) Negative
[2021-01-31] MEDS ORDERED: ePHEDrine SULFATE 50 MG/1 ML INJ ONE (14:30)
--- NOTE | 2021-01-31 14:33 | Anesthesia Consultation ---
Anesthesia Consult and Med Hx Date of service: 01/31/21 - Airway Anesthetic Teeth Evaluation: Poor ROM Head & Neck: Adequate Mental/Hyoid Distance: Adequate Mallampati Class: Class II Intubation Access Assessment: Probably Good - Pulmonary Exam CTA: Yes - Cardiac Exam Cardiac Exam: RRR - Pre-Operative Health Status ASA Pre-Surgery Classification: ASA3 Proposed Anesthetic Plan: Epidural - Pulmonary Hx Smoking: No Hx Asthma: No Hx Respiratory Symptoms: No SOB: No COPD: No Hx Pneumonia: No Hx Sleep Apnea: No - Cardiovascular System Hx Hypertension: Yes (pre-eclampsia) Hx Coronary Artery Disease: No Hx Heart Attack/AMI: No Hx Angina: No Hx Percutaneous Transluminal Coronary Angioplasty (PTCA): No Hx Cardia Arrhythmia: No Hx Pacemaker: No Hx Internal Defibrillator: No Hx Valvular Heart Disease: No Hx Heart Murmur: No Hx Peripheral Vascular Disease: No - Central Nervous System Hx Neuromuscular Disorder: No Hx Seizures: No CVA: No Hx Back Pain: No Hx Psychiatric Problems: No - Gastrointestinal Hx Ulcer: No Hx Gastroesophageal Reflux Disease: No - Endocrine Hx Renal Disease: No Hx End Stage Renal Disease: No Hx Cirrhosis: No Hx Liver Disease: No Hx Insulin Dependent Diabetes: No Hx Non-Insulin Dependent Diabetes: No Hx Thyroid Disease: No Hx Hypothyroidism: No Hx Hyperthyroidism: No - Hematic Hx Anemia: Yes Hx Sickle Cell Disease: No - Other Systems Hx Alcohol Use: Yes Hx Substance Use: No Hx Cancer: No Hx Obesity: No
[2021-01-31] MEDS ORDERED: NALOXONE 2 MG/2 ML INJ IV PRN (15:00)
[2021-01-31] MEDS ORDERED: fentaNYL-BUPIV 2 MCG/ML-0.125% 200 MCG/100 ML BAG EPIDURAL SCH (15:00)
[2021-01-31] MEDS ORDERED: ePHEDrine SULFATE 50 MG/1 ML INJ IV PRN (15:00)
--- NOTE | 2021-01-31 16:02 | Progress Note ---
Labor Epidural - Labor Epidural Start Time: 15:06 Stop Time: 15:17 Performed by:: ZAIRA VILLAGOMEZ Procedure: Patient is requesting a laboring epidural for laboring pain. Patient IDed, H&P reviewed, all questions and concerns were answered, and consent was signed. Timeout was performed at bedside. Patient in sitting position. Sterile prep and drape was performed. [3] ml of 1% lidocaine skin wheal at L[3]- L [4]. 18- gauge Tuohy epidural needle was advanced to loss of resistance with saline technique. Negative CSF negative blood. Epidural catheter advanced to [12] centimeters. [NEGATIVE] Aspiration [NEGATIVE] test dose. Sterile dressing applied. Patient tolerated procedure.
--- NOTE | 2021-01-31 16:10 | Event Note ---
Date: 01/31/21 To patient room for exam. SVE /-2. Decision made for AROM. Fluid with light mec. Patient tolerated well. Will continue to monitor. Anticipate .
[2021-01-31] MEDS ORDERED: SODIUM CHLORIDE 0.9% 1000 ML 1,000 ML ONE (17:49)
[2021-01-31] MEDS ORDERED: ceFAZolin/Water 2 GM/20 ML 2 GM/20 ML SYRINGE IV ONE (18:08)
[2021-01-31] MEDS ORDERED: BICITRA ORAL LIQD 30ML ONE (18:09)
[2021-01-31] MEDS ORDERED: METOCLOPRAMIDE 10 MG/2 ML INJ ONE (18:09)
[2021-01-31] MEDS ORDERED: METOCLOPRAMIDE 10 MG/2 ML INJ IV ONE (18:14)
[2021-01-31] MEDS ORDERED: AZITHROMYCIN/NS 500 MG/250 ML 500 MG/250 ML BAG IV ONE (18:14)
[2021-01-31] MEDS ORDERED: BICITRA ORAL LIQD 30ML PO ONE (18:14)
[2021-01-31] MEDS ORDERED: FAMOTIDINE 20 MG/2 ML INJ IV ONE (18:14)
--- NOTE | 2021-01-31 18:14 | Event Note ---
Date: 01/31/21 S/p AROM with Cat 2 FHT. Mternal 02 and left lateral position initiated. Pitocin stopped. SVE /-1. Internal monitors placed and amnioinfusion started. No improvement noted in tracing with early decelerations to the 80s. Discussed with patient no improvement in tracing despite all resuscitative efforts, recommend C/S at this time. Patient agreeable to POC. Risks of procedure reviewed and consent signed. C/S orders placed.
[2021-01-31] MEDS ORDERED: LACTATED RINGERS 1,000 ML IV SCH (18:15)
--- NOTE | 2021-01-31 18:16 | Anesthesia Day of Surgery ---
Anesthesia Day of Surgery - Day of Surgery Patient Examined: Yes Patient H&P Reviewed: Yes Patient is NPO: Yes Beta Blockers: No Cardiac Clearance: No Pulmonary Clearance: No Jonathon's Test: Negative
[2021-01-31] MEDS ORDERED: LIDOCAINE 2%/EPINEPHRINE 1:200,000 VIAL (20 ML) INFILTRATI ONE (18:21)
[2021-01-31] MEDS ORDERED: ONDANSETRON 4 MG/2 ML INJ ONE ×2 (18:34)
[2021-01-31] MEDS ORDERED: ceFAZolin/Water 2 GM/20 ML 2 GM/20 ML SYRINGE IV NR (19:00)
[2021-01-31] MEDS ORDERED: OXYTOCIN DRIP 30 UNITS/500 ML BAG IV SCH (19:00)
[2021-01-31] MEDS ORDERED: WITCH HAZEL/ GLYCERIN PAD TP PRN (19:45)
[2021-01-31] MEDS ORDERED: LANOLIN/ZINC/DIMETHICONE (LANSINOH) 7 GM TP PRN (19:45)
[2021-01-31] MEDS ORDERED: PROMETHAZINE 25 MG TAB PO PRN (19:45)
[2021-01-31] MEDS ORDERED: ONDANSETRON 4 MG/2 ML INJ IV PRN (19:45)
[2021-01-31] MEDS ORDERED: MAGNESIUM HYDROXIDE (MOM) ORAL LIQD UDC PO PRN (19:45)
[2021-01-31] MEDS ORDERED: diphenhydrAMINE 25 MG CAP PO PRN (19:45)
[2021-01-31] MEDS ORDERED: HYDROcodone/ACETAMINOPHEN 5-325 MG TAB PO PRN (19:56)
[2021-01-31] MEDS ORDERED: ACETAMINOPHEN 325 MG TAB PO PRN (19:56)
--- NOTE | 2021-01-31 20:34 | Procedure Note ---
OB Delivery Note - Delivery Date of Delivery: 01/31/21 Surgeon: SOFIA HEBERT Estimated blood loss: <100cc (50 cc) - Vaginal Delivery position: OA Intrapartum events: other(please specify) (nonreassuring heart tracing ) Delivery induction: oxytocin Delivery augmentation: rupture of membranes, pitocin Delivery monitor: internal FHT, internal uterine Route of delivery: vacuum extraction Indicators for instrumentation: nonreassuring FHR tracing Delivery placenta: spontaneous Delivery cord: 3 umbilical vessels Episiotomy: none Delivery laceration: none Anesthesia: epidural Delivery comments: Patient with non-reassuring FHT and presented to OR for primary section. After bolus of epidural, patient was re-examined and noted to be complete/complete/+2. Decision was made to proceed with vaginal delivery. Patient with poor maternal effort and FHT remained non-reassuring. Mother counseled on risk of benefits of vacuum. Patient verbalized understanding and agreed. Kiwi applied and infant head delivered after two pushes with no pop- offs. Remainder of infant delivered without difficulty. Placental delivered spontaneously..and intact. Perineum and vagina examined and no lacerations noted. Mother tolerated procedure well. - Infant A at 1 minute: 8 at 5 minutes: 9 Infant Gender: Female (2800)
[2021-01-31] MEDS ORDERED: METHYLERGONOVINE MALEATE 0.2 MG/ML VIAL IM ONE (22:44)
[2021-01-31] MEDS ORDERED: miSOPROStol 200 MCG TAB PR ONE (22:46)
--- NOTE | 2021-01-31 23:36 | Event Note ---
Date: 01/31/21 Called by RN for hemorrhage. QBL 474 ml. To patient bedside. Voices no complaints. Notes she coughed and a large blood clot came out and she felt cold. Now feeling better. Discussed uterine atony and risk due to multiple previous births. Methergine 0.2 mg given by RN. Cytotec 800 mcg placed AL by MD. Patient fundus firm with minimal bleeding. H/H ordered. Will trend vital signs and continue to monitor.
[2021-02-01] MEDS: IBUPROFEN 600 MG TAB PO SCH ×4 (01:13→20:16)
[2021-02-01] MEDS: DOCUSATE SODIUM 100 MG CAP PO SCH ×3 (01:14→23:41)
[2021-02-01] MEDS: valACYclovir 500 MG TAB PO SCH ×3 (01:14→23:41)
[2021-02-01 03:57] LABS: Hematocrit 23.1 % (30.3-42.9); Hemoglobin 7.1 gm/dl (10.1-14.3)
--- NOTE | 2021-02-01 09:17 | Progress Note ---
Assessment and Plan - Patient Problems (1) 37 weeks gestation of Current Visit: Yes Status: Acute (2) Mild pre-eclampsia Current Visit: Yes Status: Acute Qualifiers: Trimester: third trimester Qualified Code(s): O14.03 - Mild to moderate pre-eclampsia, third trimester Plan to address problem: Normotensive, will continue to monitor (3) Anemia Current Visit: Yes Status: Chronic Qualifiers: Anemia type: iron deficiency (4) Lupus Current Visit: Yes Status: Chronic (5) Herpes genitalis Current Visit: No Status: Acute (6) Vacuum-assisted vaginal delivery Current Visit: Yes Status: Acute Plan to address problem: continue routine care (7) hemorrhage Current Visit: Yes Status: Acute Plan to address problem: Will continue to monitor bleeding s/p Methergine and Cytotec H/H 7.1 and patient asymptomatic. Subjective - Subjective Principal diagnosis: VAVD, hemorrhage, anemia, elevated BP Interval history: Patient is POD #1 s/p VAVD complicated by PPH. Complains of cramping. Has some bleeding, but notes it is not heavy and denies clots. Notes she is without difficulty. Ambulating, voiding, and tolerating diet. Denies chest pain, SOB, lightheadedness. and dizziness. POC discussed with patient. Will continue to monitor. Patient reports: appetite normal, voiding normally, pain well controlled, ambulating normally [place]: doing well Objective - Vital Signs Latest vital signs: Vital Signs Temp Pulse Resp BP BP Pulse Ox Pulse Ox 02/01/21 07:45 98.1 F 86 18 116/76 98 02/01/21 04:24 98.5 F 98 H 18 122/71 122/82 98 01/31/21 23:58 99.3 F 73 18 137/87 100 01/31/21 22:30 97.5 F L 84 18 110/79 99 01/31/21 21:00 97.4 F L 63 14 108/72 100 100 01/31/21 20:31 63 99 01/31/21 20:29 75 118/78 01/31/21 20:26 67 97 01/31/21 20:21 67 98 01/31/21 20:16 65 98 01/31/21 20:14 67 114/73 01/31/21 20:11 64 98 01/31/21 20:06 66 97 01/31/21 20:01 70 97 01/31/21 19:59 70 113/71 01/31/21 19:57 66 94 01/31/21 19:56 68 94 01/31/21 19:51 69 94 01/31/21 19:50 68 94 01/31/21 19:46 66 95 01/31/21 19:44 66 116/68 93 01/31/21 19:41 72 95 01/31/21 19:36 70 95 01/31/21 19:35 68 94 01/31/21 19:31 69 96 01/31/21 19:29 68 113/65 01/31/21 19:26 70 98 01/31/21 19:24 97 01/31/21 19:23 72 76 L 01/31/21 19:21 72 0 L 01/31/21 19:16 97.4 F L 20 97 01/31/21 19:14 74 111/63 98 01/31/21 18:30 96 H 126/78 01/31/21 18:27 81 100 01/31/21 18:22 79 100 01/31/21 18:17 69 100 01/31/21 18:12 78 100 01/31/21 18:07 80 100 01/31/21 18:02 76 100 01/31/21 17:59 74 112/70 01/31/21 17:57 76 100 01/31/21 17:52 78 100 01/31/21 17:47 78 100 01/31/21 17:46 78 111/72 01/31/21 17:42 71 100 01/31/21 17:37 89 100 01/31/21 17:32 73 100 01/31/21 17:29 75 111/60 01/31/21 17:27 73 100 01/31/21 17:22 76 100 01/31/21 17:17 75 100 01/31/21 17:12 71 100 01/31/21 17:07 80 100 01/31/21 17:02 74 100 01/31/21 17:00 75 103/60 01/31/21 16:57 71 100 01/31/21 16:52 75 100 01/31/21 16:47 81 99 01/31/21 16:42 77 98 01/31/21 16:37 76 98 01/31/21 16:32 91 H 102/50 100 01/31/21 16:27 81 98 01/31/21 16:22 82 98 01/31/21 16:17 77 98 01/31/21 16:13 97.7 F 01/31/21 16:12 79 98 01/31/21 16:07 83 98 01/31/21 16:02 79 99 01/31/21 16:00 88 117/68 01/31/21 15:57 82 100 01/31/21 15:52 74 99 01/31/21 15:47 80 100 01/31/21 15:42 77 100 01/31/21 15:37 83 100 01/31/21 15:32 77 99 01/31/21 15:28 81 116/55 01/31/21 15:27 77 100 01/31/21 15:26 78 115/58 01/31/21 15:25 86 117/76 01/31/21 15:22 84 114/57 100 01/31/21 15:21 82 124/57 01/31/21 15:17 99 H 100 01/31/21 15:16 83 126/56 01/31/21 15:15 81 126/62 01/31/21 15:12 92 H 118/58 100 01/31/21 15:10 95 H 117/57 01/31/21 15:09 82 114/67 01/31/21 15:07 95 H 107/62 100 01/31/21 15:01 81 100 01/31/21 14:56 86 99 01/31/21 14:51 77 133/78 100 01/31/21 14:46 81 99 01/31/21 14:41 77 100 01/31/21 14:36 79 100 01/31/21 14:35 76 126/80 01/31/21 12:05 98 F 01/31/21 09:21 90 117/68 Intake and Output 01/31/21 02/01/21 02/01/21 23:59 07:59 15:59 Intake Total 240 Output Total 550 930 Balance -550 -690 Intake: Intake, Free Water 240 Output: Urine 550 930 Indwelling Catheter 150 Void 400 930 Other: Total, Output Amount 150 490 # Voids Void 1 Estimated Blood Loss 100 - Exam Cardiovascular: Present: Regular rate, Normal S1, Normal S2 Lungs: Present: Clear to auscultation Abdomen: Present: soft Uterus: Present: firm, fundal height below umbilicus Extremities: Present: normal - Labs Labs: Abnormal lab results 02/01/21 Range/Units 03:41 Hgb 7.1 L (10.1-14.3) gm/dl Hct 23.1 L (30.3-42.9) %
--- NOTE | 2021-02-01 09:45 | Post Anesthesia Evaluation ---
- Post Anesthesia Evaluation Patient Participated: Yes Airway Patent: Yes Stable Respiratory Function: Yes Nausea/Vomiting: No Temp > 96.8F: Yes Pain Manageable: Yes Adequeate Hydration: Yes Anesthesia Complications: No Block Receding Appropriately: Yes Patient on Ventilator: No
[2021-02-01] MEDS ORDERED: PRENATAL VIT27-FE FUMARATE-FOLIC ACID VIT TAB PO SCH (10:00)
[2021-02-01] MEDS: PRENATAL VIT27-FE FUMARATE-FOLIC ACID VIT TAB PO SCH (11:26)
[2021-02-01] MEDS: FAMOTIDINE 20 MG/2 ML INJ IV SCH (14:01)
[2021-02-02] MEDS: IBUPROFEN 600 MG TAB PO SCH (04:11)
--- NOTE | 2021-02-02 08:43 | Discharge Summary ---
Providers - Providers Date of Admission: 01/30/21 00:01 Date of discharge: 02/02/21 (pt desires discharge home) Attending physician: LEROY MICHAELS Primary care physician: LEROY MICHAELS Hospitalization Reason for admission: observation Delivery: vacuum extraction Episiotomy: none Laceration: none Other procedures: none complications: none Discharge diagnosis: IUP at term delivered [place] baby: female Condition at discharge: Good Disposition: 01 HOME / SELF CARE / HOMELESS - Discharge Diagnoses (1) 37 weeks gestation of Status: Acute (2) Noncompliance by declining intervention or support Status: Acute (3) Anemia Status: Chronic Qualifiers: Anemia type: iron deficiency Comment: RX provided for bid iron (4) Lupus Status: Chronic (5) Herpes genitalis Status: Acute Plan - Discharge Medications Prescriptions: Docusate Sodium [Colace CAP] 100 mg PO BID PRN #60 capsule PRN Reason: Constipation Ferrous Sulfate [Feosol 325 MG tab] 325 mg PO BID #60 tablet Ibuprofen [Motrin 800 MG tab] 800 mg PO TID PRN #30 tablet PRN Reason: Pain valACYclovir [Valtrex] 1,000 mg PO BID #60 tab - Provider Discharge Summary Activity: routine, no sex for 6 weeks, no heavy lifting 4 weeks, no strenuous exercise Diet: routine Instructions: routine Additional instructions: [] Smoking cessation referral if applicable(refer to patient education folder for contact #) [] Refer to [facility] Booklet Call your doctor immediately for: * Fever > 100.5 * Heavy vaginal bleeding ( >1 pad per hour) * Severe persistent headache * Shortness of breath * Reddened, hot, painful area to leg or breast Please call [phone] and schedule an appointment in 2 weeks for your blood pressure check and in 4 weeks for your visit. Thank you! - Follow up plan Follow up: LEROY MICHAELS MD [Primary Care Provider] - 7 Days
[2021-02-02] MEDS: DOCUSATE SODIUM 100 MG CAP PO SCH (09:54)
[2021-02-02] MEDS: valACYclovir 500 MG TAB PO SCH (09:55)
[2021-02-02] MEDS: PRENATAL VIT27-FE FUMARATE-FOLIC ACID VIT TAB PO SCH (09:55)
[2021-02-02 12:32] VITALS: BP 122/77
== END 2021-02-02 12:05 | disposition home or self-care (01) | DRG 774 ==
LOC: TRG 21:22 → APU 21:23 → LD 01-30 00:01 → TRG 01-30 00:01 → LD 01-30 00:20 → OB 01-31 21:37
PROVIDERS: ADMIT Obstetrics & Gynecology; ATTEND Obstetrics & Gynecology
PROC: 30233N1 Transfusion of Nonautologous Red Blood Cells into Peripheral Vein, Percutaneous Approach (ICD-10-PCS; 2021-01-30)
PROC: 10D07Z6 Extraction of Products of Conception, Vacuum, Via Natural or Artificial Opening (ICD-10-PCS; principal; 2021-01-31)
PROC: 3E033VJ Introduction of Other Hormone into Peripheral Vein, Percutaneous Approach (ICD-10-PCS; 2021-01-31)
PROC: 10907ZC Drainage of Amniotic Fluid, Therapeutic from Products of Conception, Via Natural or Artificial Opening (ICD-10-PCS; 2021-01-31)
PROC: 3E0R3BZ Introduction of Anesthetic Agent into Spinal Canal, Percutaneous Approach (ICD-10-PCS; 2021-01-31)
PROC: 00HU33Z Insertion of Infusion Device into Spinal Canal, Percutaneous Approach (ICD-10-PCS; 2021-01-31)
DX: O14.04 Mild to moderate pre-eclampsia, complicating childbirth (principal); O98.32 Other infections with a predominantly sexual mode of transmission complicating childbirth; Z3A.37 37 weeks gestation of pregnancy; Z37.0 Single live birth; D50.8 Other iron deficiency anemias; M32.9 Systemic lupus erythematosus, unspecified; Z20.822 Contact with and (suspected) exposure to COVID-19; O99.02 Anemia complicating childbirth; A60.00 Herpesviral infection of urogenital system, unspecified; O76 Abnormality in fetal heart rate and rhythm complicating labor and delivery; O72.1 Other immediate postpartum hemorrhage
CPT/HCPCS: 36415; 59025; 76816; 81001; 82565; 83615; 84450; 84460; 84550; 85014; 85018; 85027; 86592; 86850; 86900; 86901; 86920; G0378; J0595; J2210; J2405; J2590; J2765; J7040; J7120; P9016; U0003

== ENCOUNTER 2021-05-15 05:29 | Day surgery (SDC) | payer MEDICAID ==
[2021-05-12 09:24] LABS: Mean Corpuscular HGB Conc 30 % (30-34); Mean Corpuscular Volume 73 fl (79-97); Platelet Count 307 K/mm3 (140-440); Red Blood Count 4.81 M/mm3 (3.65-5.03); Red Cell Distribution Width 18.2 % (13.2-15.2)
[2021-05-12 09:27] LABS: Hemoglobin 10.4 gm/dl (10.1-14.3)
--- NOTE | 2021-05-12 17:18 | History and Physical Report ---
History of Present Illness Date of examination: 05/08/21 History of present illness: Patient has been reassessed/reevaluated H&P has been reviewed. No interval changes. 30 year old patient desires sterilization. Discussed with various methods of contraceptives including abstinence, barrier and hormonal. Discussed oral, implantable, dermal, injectable,intravaginal and intrauterine methods. Patient declined temporary contraceptives. Discuss the permanency of sterilization. High risk of regret and 0.5 to 1% risk of failure. Questions answered Patient understands and desires to proceed. Vital Signs: Patient Profile: 30 Years Old Female LMP: 05/11/2020 Height: 65 inches Weight: 147 pounds BMI: 24.46 Temp: 97.2 degrees F BP sittin / 82 (left arm) Menstrual History: LMP (date): 05/11/2020 Past History : 4 Term Births: 3 Premature Births: 0 Living Children: 4 Para: 4 Mult. Births: 0 Prev : 0 Prev. attempt? none Aborta: 0 Elect. Ab: 0 Spont. Ab: 0 Ectopics: 0 # 1 Delivery date: 04/07/2012 Weeks Gestation: 39+5 labor: no Delivery type: Vaginal Anesthesia type: epidural Delivery location: [facility] Sex: female weight: 7.63 # 2 Delivery date: 05/21/2017 Weeks Gestation: 39 labor: no Delivery type: Anesthesia type: epidural Delivery location: [facility] Infant Sex: Female weight: 6#5 # 3 Delivery date: 12/03/2018 Weeks Gestation: 39 Delivery type: Vaginal Anesthesia type: epidural Delivery location: [facility] Sex: female weight: 7.06 Comments: HSV2,bartholins cyst # 4 Delivery date: 03/03/2021 Weeks Gestation: 37 labor: no Delivery type: Delivery location: [facility] Infant Sex: Female Active Medications (reviewed today): vitamins () Current Allergies (reviewed today): No known allergies Past Medical History: Anemia Lupus Past Surgical History: Reviewed history from 04/13/2021 and no changes required: Family History Summary: Reviewed history Last on 04/13/2021 and no changes required:05/12/2021 PGM - Has Family History of Diabetes - Entered On: 07/07/2020 Father - Has Family History of Hypertension - Entered On: 09/19/2013 Mother - Has Family History of Hypertension - Entered On: 09/19/2013 MGM - Has Family History of Hypertension - Entered On: 09/19/2013 PGM - Has Family History of Hypertension - Entered On: 09/19/2013 General Comments - FH: Family History of Hypertension No Family History of Breast Cancer No Family History of Colon Cancer No Family History of Ovarvian Cancer Social History: Reviewed history from 07/07/2020 and no changes required: Patient is single no etoh, no illicit drug use, no tobacco use Smoking History: Patient has never smoked. 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 of genital herpes: yes Partner hx. of genital herpes: no Hx of STD: none Other: CT--2010 Review of Systems General Denies fever, chills, sweats, anorexia, fatigue, weakness, malaise, weight loss and sleep disorder. Denies vaginal discharge, incontinence, dysuria, hematuria, urinary frequency, amenorrhea, menorrhagia, abnormal vaginal bleeding, pelvic pain, genital sores, decreased libido, painful periods, painful sex, urinary urgency, hot flashes, vaginal dryness, vaginal itching and vaginal odor. CV Denies chest pains, palpitations, syncope, dyspnea on exertion, orthopnea, PND and peripheral edema. Resp Denies cough, dyspnea at rest, excessive sputum, hemoptysis, wheezing and pleurisy. GI Denies nausea, vomiting, diarrhea, constipation, change in bowel habits, abdominal pain, melena, hematochezia, jaundice, gas/bloating, indigestion/heartburn, dysphagia and odynophagia. Breast Denies left breast lump, right breast lump, nipple discharge, bloody discharge from nipple, breast pain, abnormal mammogram and breast enlargement. Psych Denies depression, anxiety, irritability and mood swings. Past History Past Medical History: other (SEE HPI) Past Surgical History: Other (SEE HPI) Social history: full code, other (SEE HPI) Family history: other (SEE HPI) Medications and Allergies Allergies Allergy/AdvReac Type Severity Reaction Status Date / Time No Known Allergies Allergy Verified 04/08/21 06:53 Home Medications Medication Instructions Recorded Confirmed Last Taken Type No Known Home Medications [No 04/08/21 04/08/21 Unknown History Reported Home Medications] Review of Systems Constitutional: other (SEE HPI) Exam - Physical Exam Narrative exam: HEENT: normocephalic, no lesions or deformities Skin no ulcers, xanthomas Chest: respiratory effort normal, clear to auscultation CV: regular, normal S1-S2, no murmur, no rub, no gallop Abdomen: soft, non-tender, no masses, bowel sounds normal Neuro: no gross anomalities Extremities: normal alignment, no joint enlargement, crepitus, masses or tenderness; normal tone and strength [employer] Exams Vulva/Vagina: normal appearance, no discharge, lesions. No evidence of cystocele or rectocele. Cervix: normal appearance, no lesions, no discharge Uterus: normal position, midline, mobile Adnexae: no masses or tenderness Rectovaginal: no masses or tenderness - Constitutional Vitals: Temp Pulse Resp BP Pulse Ox 98.3 F 78 20 121/73 100 05/12/21 09:10 05/12/21 09:10 05/12/21 09:10 05/12/21 09:10 05/12/21 09:10 Results - Labs CBC & Chem 7: 05/12/21 09:10 Labs: Abnormal lab results 05/12/21 Range/Units 09:10 MCV 73 L (79-97) fl MCH 22 L (28-32) pg RDW 18.2 H (13.2-15.2) % Assessment and Plan - Patient Problems (1) Encounter for sterilization Current Visit: No Status: Acute Plan to address problem: Patient desires sterilization.Discuss the permanency of sterilization. High risk of regret and 0.5 to 1% risk of failure. Discussed options of tubal blockage and salpingectomy and it's possible benefit of preventing ovarian cancer and increased risks of bleeding during the procedure. Discuss the risks of the surgery including infection, bleeding possibly heavy enough to require a blood transfusion, possilble damage to bowel, bladder or ureter. Patient understands and desires to proceed with salpingectomy. (2) Lupus Current Visit: No Status: Chronic
[~2021-05-15 05:29] MED LIST: BUPIVACAINE/PF (0.5%) 5 MG/1 ML 30 ML VIAL INFILTRATI ONE; SODIUM CHLORIDE 0.9% IRR 1,500 ML BOTTLE IR ONE
[2021-05-15] MEDS ORDERED: GABAPENTIN 300 MG CAP PO NR (06:00)
[2021-05-15] MEDS ORDERED: CELECOXIB 200 MG CAP PO NR (06:00)
[2021-05-15] MEDS ORDERED: MIDAZOLAM 2 MG/2 ML INJ IV NR (06:00)
[2021-05-15] MEDS ORDERED: SCOPOLAMINE TRANSDERMAL PATCH 72 HR TD NR (06:00)
[2021-05-15] MEDS ORDERED: ACETAMINOPHEN 500 MG TAB PO SCH (06:00)
[2021-05-15] MEDS ORDERED: LACTATED RINGERS 1,000 ML IV SCH (06:00)
[2021-05-15] MEDS ORDERED: BUPIVACAINE/PF (0.5%) 5 MG/1 ML 30 ML VIAL INFILTRATI ONE ×3 (07:06→07:52)
[2021-05-15] MEDS ORDERED: KETAMINE/STERILE WATER 50 MG/ML SYRINGE ONE (07:08)
[2021-05-15] MEDS ORDERED: MIDAZOLAM 2 MG/2 ML INJ ONE (07:08)
[2021-05-15] MEDS ORDERED: propofoL 200 MG/20 ML VIAL IV ONE (07:08)
[2021-05-15] MEDS ORDERED: fentaNYL 100 MCG/2 ML INJ ONE (07:08)
[2021-05-15] MEDS ORDERED: LIDOCAINE MPF (2%) 20 MG/1 ML VIAL 5 ML ONE (07:08)
[2021-05-15] MEDS ORDERED: KETOROLAC 30 MG/1 ML INJ ONE (07:09)
[2021-05-15] MEDS ORDERED: ROCURONIUM 50 MG/5 ML INJ IV ONE (07:09)
[2021-05-15] MEDS ORDERED: dexAMETHasone 20 MG/5 ML VIAL ONE (07:09)
[2021-05-15] MEDS ORDERED: ONDANSETRON 4 MG/2 ML INJ ONE (07:09)
--- NOTE | 2021-05-15 07:17 | Anesthesia Consultation ---
Anesthesia Consult and Med Hx Date of service: 05/15/21 - Airway Anesthetic Teeth Evaluation: Good (braces upper and lower) ROM Head & Neck: Adequate Mental/Hyoid Distance: Adequate Mallampati Class: Class II Intubation Access Assessment: Probably Good - Pre-Operative Health Status ASA Pre-Surgery Classification: ASA1 Proposed Anesthetic Plan: General - Pulmonary Hx Smoking: No Hx Respiratory Symptoms: No - Cardiovascular System Hx Hypertension: No - Central Nervous System CVA: No - Endocrine Hx Renal Disease: No Hx Liver Disease: No Hx Insulin Dependent Diabetes: No Hx Non-Insulin Dependent Diabetes: No Hx Thyroid Disease: No - Other Systems Hx Obesity: No - Additional Comments Anesthesia Medical History Comments: No hx anesthetic complications.
--- NOTE | 2021-05-15 07:17 | Anesthesia Day of Surgery ---
Anesthesia Day of Surgery - Day of Surgery Patient Examined: Yes Patient H&P Reviewed: Yes Patient is NPO: Yes
[2021-05-15] MEDS ORDERED: SODIUM CHLORIDE 0.9% IRR 1,500 ML BOTTLE IR ONE (07:52)
[2021-05-15] MEDS ORDERED: oxyCODONE /ACETAMINOPHEN 5-325MG TAB PO PRN (08:00)
[2021-05-15] MEDS ORDERED: HYDROmorphone 1 MG/1 ML INJ IV PRN (08:00)
[2021-05-15] MEDS ORDERED: ONDANSETRON 4 MG/2 ML INJ IV PRN (08:00)
[2021-05-15] MEDS ORDERED: NEOSTIGMINE 10MG/10 ML INJ MDV ONE (08:13)
[2021-05-15] MEDS ORDERED: GLYCOPYRROLATE 0.4 MG/2 ML INJ ONE (08:13)
--- NOTE | 2021-05-15 08:36 | Operative Report ---
Operative Report Operative Report: Date of procedure: May 15, 2021 Pre-operative diagnosis: Patient desires permanent sterilization Post-operative diagnosis: Same Procedure name(s): Laparoscopic bilateral salpingectomy Surgeon: Miller Christianson MD Information Coordinator: [] Anesthesia: General endotracheal EBL: Minimal Complications: None Findings: Patient with uterus approximately 8-10 weeks in size with normal fallopian tubes bilaterally Specimen(s): Bilateral fallopian tubes Patient was brought in the operating room. General anesthesia was induced without difficulty. She was placed in dorsal lithotomy position. Prepped and draped in usual sterile manner. Timeout was performed. Her urinary bladder with was emptied with a red rubber catheter. Speculum placed in her vagina and Sargis uterine manipulator was placed for uterine manipulation without difficulty. Attention was then switched to the patient's abdomen. An infra- umbilical incision was made with a scalpel. This incision was spread with a hemostat. A 5 mm trocar was placed in this incision while lifting high the abdominal wall. Intra-abdominal presence was verified directly with the laparoscope. The patient was then insufflated to approximately 3 L of CO2 gas. The patient's findings as noted above. An accessory puncture was made suprap ubically. The 8 mm trocar was placed through this incision under direct visualization with no evidence of internal organ damage. Each of the fallopian tube were identified by its fimbriated end. Starting with the right fallopian tube approximately 1 to 2 cm from the cornea LigaSure device was used to cross sectional cut the tube. From this point the ligature device was used to cauterize and cut the mesosalpinx until the fimbriated end was reached detaching the tube. The fallopian tube was then removed through the accessory port attention was then switched to the contralateral tube. Same procedure was performed detaching that tube and removed it through the accessory port. The remaining stump was inspected and found to be hemostatic. At this time all instruments were removed. The patient was de-insufflated. The skin incisions were closed subcuticularly with 4-0 Vicryl. Marcaine was injected into the surgical incisions, for postoperative pain relief. The patient tolerated proc edure well. She was awakened in the operating room and accompanied to the recovery room in good condition.
--- NOTE | 2021-05-15 08:42 | Discharge Summary ---
Short Stay Discharge Plan Activity: advance as tolerated Diet: regular Wound: open to air Additional Instructions: Patient to call office for any fever, chills, nausea, vomiting or pain not controlled by pain medication. Patient to keep scheduled postop appointment at the office. Follow up with: PRIMARY CARE,MD [Primary Care Provider] - 7 Days Prescriptions: oxyCODONE /ACETAMINOPHEN [Percocet 5/325 mg] 1 - 2 tab PO Q6HR PRN #20 tablet PRN Reason: Pain
[2021-05-15] MEDS ORDERED: ACETAMINOPHEN 325 MG TAB PO PRN (09:00)
[2021-05-15] MEDS ORDERED: HYDROcodone/ACETAMINOPHEN 5-325 MG TAB PO PRN (09:00)
[2021-05-15 09:48] VITALS: BP 117/80
--- NOTE | 2021-05-15 11:35 | Post Anesthesia Evaluation ---
- Post Anesthesia Evaluation Patient Participated: Yes Airway Patent: Yes Stable Respiratory Function: Yes Nausea/Vomiting: No Temp > 96.8F: Yes Pain Manageable: Yes Adequeate Hydration: Yes Anesthesia Complications: No
--- NOTE | 2021-05-20 17:44 | Event Note ---
Date: 05/20/21 (Uvula) Today I was notified that the patient has a swollen uvula. I called her and she saw her PCP who prescribed steroids and ABX. Pt states can't eat and is going to see ENT on 06/02. I offered to check if we can get her appointment moved up or with a different ENT [phone]
== END 2021-05-15 09:58 | disposition home or self-care (01) ==
LOC: OR 05:29
PROVIDERS: ATTEND Obstetrics & Gynecology
DX: Z30.2 Encounter for sterilization (principal); D64.9 Anemia, unspecified; Z20.822 Contact with and (suspected) exposure to COVID-19; Z79.899 Other long term (current) drug therapy; Z72.89 Other problems related to lifestyle; Z98.890 Other specified postprocedural states; Z80.8 Family history of malignant neoplasm of other organs or systems; Z83.3 Family history of diabetes mellitus; Z82.49 Family history of ischemic heart disease and other diseases of the circulatory system
CPT/HCPCS: 36415; 58670; 84703; 85027; 88302; J1100; J1815; J1885; J2250; J2405; J2704; J2710; J3010; J3490; J7120; U0003